=== PATIENT | female | born 1990 | race Caucasian/White ===

== ENCOUNTER 2022-12-05 08:57 | Outpatient (CLI) | payer BC, SELFPAY ==
[2022-12-05 11:15] LABS: Basophils Percent Auto 0.4 % (0.2-1.2); Eosinophils Absolute Auto 0.2 K/mm3 (0-0.3); Eosinophils Percent Auto 2.3 % (0-4.4); Hematocrit 40.2 % (37.0-47.0); Hemoglobin 13.8 g/dL (12.0-15.0); Immature Granulocyte Absolute 0.02 K/mm3 (0.00-0.031); Immature Granulocyte Percent A 0.2 % (0-0.5); Lymphocytes Absolute Auto 1.32 K/mm3 (0.9-3.2); Lymphocytes Percent Auto 14.7 % (18.3-44.2); Mean Corpuscular HGB Conc 34.3 g/dl (32-36); Mean Corpuscular Hemoglobin 30.1 pg (26-34); Mean Corpuscular Volume 87.6 fl (80-100); Mean Platelet Volume 10.2 fl (7.4-10.4); Monocytes Absolute Auto 0.6 K/mm3 (0.1-0.6); Monocytes Percent Auto 6.1 % (2.6-8.5); Neutrophils Absolute Auto 6.8 K/mm3 (1.3-6.7); Neutrophils Percent Auto 76.3 % (45.5-73.1); Platelet Count Result 260 k/mm3 (150-375); Red Blood Count 4.59 M/mm3 (4.2-5.4)
[2022-12-05 11:26] LABS: Glucose 1 Hour PP 50gm Dose 127 mg/dL
[2022-12-05 12:01] LABS: Hepatitis B Surface Antigen Negative (Negative); Rubella IgG Antibody 39.6 IU/ML
[2022-12-05 12:06] LABS: HIV 1/2 Ab P24 Ag Result Negative (Negative)
[2022-12-05 15:14] LABS: Rapid Plasma Reagin Non-Reactive (NonReactive)
[2022-12-11 15:30] LABS: CMV IgG Antibody >10.00 U/mL (<0.60)
[2022-12-16 10:15] LABS: SMA 2.0 RISK VARIANT NOT DETECTED
[2022-12-16 19:38] LABS: CF Result NEGATIVE (NEGATIVE)
[2022-12-20 14:40] LABS: SMA Results Received YES
== END 2022-12-05 08:58 | disposition home or self-care (01) ==
PROVIDERS: PCP Family Medicine Sports Medicine; Visit Provider Obstetrics & Gynecology
DX: N94.89 Other specified conditions associated with female genital organs and menstrual cycle (principal)
CPT/HCPCS: 36415; 81220; 81329; 82947; 84702; 85025; 86592; 86644; 86703; 86747; 86762; 86787; 86850; 86900; 86901; 87086; 87340; G0432

== ENCOUNTER 2023-03-17 14:01 | Observation (INO) | payer BC, SELFPAY ==
[2023-03-17 15:13] LABS: Appearance Urine Clear (Clear); Bilirubin Urine Negative (Negative); Blood Urine 3+ (Negative); Color Urine Yellow (Yellow); Glucose Urine UA Negative (Negative); Ketones Urine Negative (Negative); Leukocyte Esterase Ur Negative LEU/UL (Negative); Nitrate Urine Negative (Negative); Protein Urine Negative (Negative); Specific Grav Ur <= 1.005 (1.001-1.035); Urobilinogen Urine 0.2 mg/dL (<2.0)
[2023-03-17 15:31] LABS: Bacteria Urine None Seen /hpf; Need Manual Microscopic Reviewed; Non Pathogenic Casts 0-2; RBC Urine 21-50 /hpf (0-2); Squamous Epithelial Cell Urine None seen /hpf (Few); WBC Urine 0-5 /hpf
[2023-03-17 15:34] LABS: Add Urine Microscopic? YES
--- NOTE | 2023-03-18 15:18 | P.PNOB_ITS ---
OB - Triage/Final Diagnosis Visit Information Reason for evaluation: threatened labor Comments/Additional reasons for admission: I have assessed the risk for this patient, Cheyenne Solorzano, and determined that she would benefit from observation care. Evaluation Laboratory results: Laboratory Tests 03/17/23 14:34 Urine Color Yellow Urine Appearance Clear Urine pH 7.0 Ur Specific [place] <= 1.005 Urine Protein Negative Urine Glucose (UA) Negative Urine Ketones Negative Ur Blood (Man) 3+ H Urine Nitrate Negative Urine Bilirubin Negative Urine Urobilinogen 0.2 Add Ur Microanalysis Reviewed Leukocyte Esterase Rfl Negative Urine RBC 21-50 H Urine WBC 0-5 Ur Squamous Epith Cells None seen Urine Bacteria None seen Urine Casts 0-2
== END 2023-03-17 15:55 | disposition home or self-care (01) ==
PROVIDERS: Admitting Provider Obstetrics & Gynecology; PCP Family Medicine Sports Medicine; Visit Provider Obstetrics & Gynecology
DX: O47.02 False labor before 37 completed weeks of gestation, second trimester (principal); Z3A.25 25 weeks gestation of pregnancy
CPT/HCPCS: 81001; G0378; G0379

== ENCOUNTER 2023-04-04 09:03 | Outpatient (CLI) | payer BC, SELFPAY ==
[2023-04-04 10:39] LABS: Basophils Percent Auto 0.3 % (0.2-1.2); Eosinophils Absolute Auto 0.3 K/mm3 (0-0.3); Hemoglobin 11.4 g/dL (12.0-15.0); Immature Granulocyte Absolute 0.06 K/mm3 (0.00-0.031); Immature Granulocyte Percent A 0.5 % (0-0.5); Lymphocytes Absolute Auto 1.21 K/mm3 (0.9-3.2); Lymphocytes Percent Auto 11.1 % (18.3-44.2); Mean Corpuscular HGB Conc 34.5 g/dl (32-36); Mean Corpuscular Hemoglobin 30.2 pg (26-34); Mean Corpuscular Volume 87.3 fl (80-100); Mean Platelet Volume 9.9 fl (7.4-10.4); Monocytes Absolute Auto 0.6 K/mm3 (0.1-0.6); Monocytes Percent Auto 5.7 % (2.6-8.5); Neutrophils Absolute Auto 8.7 K/mm3 (1.3-6.7); Neutrophils Percent Auto 79.4 % (45.5-73.1); Platelet Count Result 219 k/mm3 (150-375); Red Blood Count 3.78 M/mm3 (4.2-5.4); Red Cell Distribution Width 13.8 % (11.5-14.5); White Blood Count 10.9 K/mm3 (4.5-10.0)
[2023-04-04 10:50] LABS: Glucose 1 Hour PP 50gm Dose 130 mg/dL
[2023-04-04 11:30] LABS: HIV 1/2 Ab P24 Ag Result Negative (Negative)
== END 2023-04-04 09:04 | disposition home or self-care (01) ==
LOC: ANHLAB 09:04
PROVIDERS: PCP Family Medicine Sports Medicine; Visit Provider Obstetrics & Gynecology
DX: Z34.90 Encounter for supervision of normal pregnancy, unspecified, unspecified trimester (principal); Z3A.00 Weeks of gestation of pregnancy not specified
CPT/HCPCS: 36415; 82947; 85025; 86703; G0432

== ENCOUNTER 2023-05-08 09:37 | Emergency (ER) | payer BC, SELFPAY ==
[2023-05-08] VITALS (11 sets, daily range): BP systolic 120–173; BP diastolic 75–96; PULSE 78–98; RESP 16–18; TEMP 36.4–36.6; O2SAT 98–100
--- NOTE | ~2023-05-08 | US_ITS ---
US renal BI 05/08/2023 13:01 Procedure: Realtime transabdominal ultrasound of the kidneys and bladder. Indication: Left flank pain. Hematuria. 32 weeks . Comparison: No prior studies for comparison. Findings: Renal echotexture is normal bilaterally without contour deforming mass or renal calculus. T he right kidney measures 13.5 cm and left kidney measures 5.2 cm. Left kidney is atrophic. Bladder wi thin normal limits. There is severe left hydronephrosis. There are possible left renal stones. Bladde r is unremarkable. Right ureteral jet is present. Left ureteral jet not visualized. Impression: 1: Severe left hydronephrosis with left renal atrophy. Possible left nephrolithiasis.. Reviewed, dictated and finalized at location L. [employer] Impression: 1: Severe left hydronephrosis with left renal atrophy. Possible left nephrolith iasis..
[2023-05-08 10:42] LABS: Appearance Urine Cloudy (Clear); Bacteria Urine None Seen /hpf; Bilirubin Urine Negative (Negative); Blood Urine 3+ (Negative); Color Urine Orange (Yellow); Glucose Urine UA Negative (Negative); Ketones Urine Negative (Negative); Leukocyte Esterase Ur 2+ LEU/UL (Negative); Need Manual Microscopic Reviewed; Nitrate Urine Negative (Negative); Protein Urine 2+ mg/dL (Negative); RBC Urine >100 /hpf (0-2); Specific Grav Ur 1.003 (1.001-1.035); Squamous Epithelial Cell Urine Occasional /hpf (Few); Urobilinogen Urine 0.2 mg/dL (<2.0); WBC Clumps Urine Present /HPF; pH Urine 6.5 (5.0-9.0)
[2023-05-08 10:45] LABS: Add Urine Microscopic? YES
[2023-05-08 10:54] LABS: Basophils Percent Auto 0.3 % (0.2-1.2); Eosinophils Absolute Auto 0.1 K/mm3 (0-0.3); Eosinophils Percent Auto 0.9 % (0-4.4); Hematocrit 33.6 % (37.0-47.0); Hemoglobin 11.7 g/dL (12.0-15.0); Immature Granulocyte Absolute 0.04 K/mm3 (0.00-0.031); Immature Granulocyte Percent A 0.4 % (0-0.5); Lymphocytes Absolute Auto 0.96 K/mm3 (0.9-3.2); Lymphocytes Percent Auto 9.7 % (18.3-44.2); Mean Corpuscular HGB Conc 34.8 g/dl (32-36); Mean Corpuscular Hemoglobin 29.9 pg (26-34); Mean Corpuscular Volume 85.9 fl (80-100); Mean Platelet Volume 9.9 fl (7.4-10.4); Monocytes Absolute Auto 1.2 K/mm3 (0.1-0.6); Monocytes Percent Auto 11.9 % (2.6-8.5); Neutrophils Absolute Auto 7.6 K/mm3 (1.3-6.7); Neutrophils Percent Auto 76.8 % (45.5-73.1); Platelet Count Result 190 k/mm3 (150-375); Red Blood Count 3.91 M/mm3 (4.2-5.4); Red Cell Distribution Width 14.2 % (11.5-14.5); White Blood Count 9.9 K/mm3 (4.5-10.0)
[2023-05-08 11:06] LABS: Alanine Aminotransferase 19 U/L (6-35); Albumin Level 3.6 g/dL (3.5-5.1); Alkaline Phosphatase 94 U/L (38-126); Anion Gap 9 mmol/L (8-16); Aspartate Amino Transferase 27 U/L (14-36); Bilirubin,Total 0.6 mg/dL (0.2-1.3); Blood Urea Nitrogen 4 mg/dL (7-17); Calcium 9.2 mg/dL (8.4-10.2); Carbon Dioxide 21 mmol/L (22-30); Chloride 105 mmol/L (98-107); Estimated CRCL calculation 117 ml/min; Estimated Glomerular Filt Rate > 60; Glucose 79 mg/dL (65-110); Potassium 3.1 mmol/L (3.4-5.0); Sodium 135 mmol/L (137-145)
--- NOTE | 2023-05-08 11:45 | PC.NURSE ---
RN to bedside in ED to obtain NST on a 32 wk pt with lower back pain.
[2023-05-08] MEDS: SODIUM CHLORIDE 0.9% IV 1,000 ML 999 ML IV CONT (12:16)
--- NOTE | 2023-05-08 12:16 | ED.BACK ---
HPI - Back Pain/Injury General Chief Complaint: Back Pain/Injury Stated Complaint: COVID+ LOWER BACK PAIN 32 WEEKS PREG Time Seen by Provider: 05/08/23 12:05 Source: patient Mode of arrival: ambulatory Limitations: no limitations History of Present Illness HPI Narrative: This is a 33 year old female, 32 weeks , that presents to the ER for left low back pain. Ongoing since yesterday. Reports 2 days ago she started to have sinus pain and congestion. She was seen at her doctor's office and diagnosed with COVID. Last night she started to note left sided flank pain and hematuria. She has had intermittent hematuria since her second trimester and was recently placed on prophylactic Macrobid. Reports vomiting and dysuria. Denies fevers. Related Data Home Medications Medication Instructions Recorded Confirmed vitamins-iron fumarate 65 1 tablet PO DAILY 11/26/22 04/08/23 mg iron-folic acid 1 mg tablet aspirin 81 mg tablet,delayed 81 mg PO DAILY 01/21/23 04/08/23 release (Adult Low Dose Aspirin) ondansetron HCl 4 mg tablet 4 mg PO Q8H 01/21/23 04/08/23 ferrous sulfate 325 mg (65 mg 325 mg PO DAILY 04/08/23 04/08/23 iron) tablet Allergies Allergy/AdvReac Type Severity Reaction Status Date / Time amoxicillin Allergy Intermediate Rash Verified 04/21/23 16:43 Review of Systems Review of Systems: CONSTITUTIONAL: Denies fever ENT: Reports rhinorrhea, congestion, sore throat RESPIRATORY: Denies cough or dyspnea. GASTROINTESTINAL: Reports nausea and vomiting. Denies abdominal pain GENITOURINARY: Reports dysuria and hematuria. All systems reviewed & are unremarkable except as noted in HPI and below PMFSH Surgical History Surgical History H/O sinus surgery 1996 Family History Family History Father Hypertension Grandparent Cerebrovascular accident maternal grandfather Other Cerebrovascular accident maternal aunt Social History Social History Smoking status: Never smoker Alcohol intake: never Substance use: never Substance use type: does not use Lack of Transportation: No Lack of Food: Never True Current Housing: I Have Housing Concerned About Future Housing: No Difficulty Paying Gas/Electric Bills: No Difficulty Paying for Meds: No Currently Unemployed: No Education: Bachelor's Degree Difficulty w/ Childcare or Family Care: No Living arrangements: other Additional living arrangements comments: spouse 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 HEAD: Normocephalic, atraumatic. EYES: EOMI. CHEST: Clear to auscultation. No respiratory distress. No wheezes rales or rhonchi HEART: Regular rate and rhythm. No murmur heard. Normal peripheral pulses. ABDOMEN: Gravid, nontender, nondistended, normal active bowel sounds. No CVA tenderness EXTREMITIES: Normal range of motion. No edema. SKIN: Warm, dry, no rash. NEURO: No focal deficits. Alert and oriented x3. PSYCH: Normal mood and affect Course Course Emergency Course: Patient updated on workup and agrees with plan of care Consultations Consultation #1: Spoke with Dr. Haas about patient and workup. He will come down to the ER to see the patient Date: 05/08/23 Consultation #2: Spoke with Dr. Pineda about patient and workup. Patient is stable for discharge home on antibiotics. Does not recommend any further monitoring Date: 05/08/23 Vital Signs Vital signs: Vital Signs Temperature 97.6 F 05/08/23 09:39 Pulse Rate 96 05/08/23 09:39 Respiratory Rate 18 05/08/23 09:
[2023-05-08] MEDS: POTASSIUM CHLORIDE 20 MEQ ER TABLET 40 MEQ PO (12:20)
[2023-05-08 12:28] LABS: Magnesium 1.8 mg/dL (1.6-2.3)
--- NOTE | 2023-05-08 12:40 | PC.NURSE ---
Provider Alia Salinas on the phone with OB provider updating on this pt. PA discussing NST with provider and aware of uterine irritability. pt remain in ED at this time.
[2023-05-08] MEDS: ACETAMINOPHEN 500 MG TABLET 1000 MG PO (12:59)
[2023-05-08] MEDS: ONDANSETRON INJ 4 MG/2 ML VIAL IV PUSH (12:59)
[2023-05-08] MEDS: LACTATED RINGERS 1,000 ML 999 ML IV CONT (12:59)
[2023-05-08 13:44] LABS: Lactic Acid Reflex 1.5 mmol/L (0.7-2.0)
--- NOTE | 2023-05-08 14:39 | WPDURCON ---
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 We favor outpatient treatment for her current infection followed by suppressive antibiotics (he has already been prescribed nitrofurantoin 100 mg daily). If left flank pain becomes intractable or she develops febrile urinary tract infections we may need to place ureteral stent but I will try and avoid that until after she has delivered. Following delivery we will obtain a CT urogram and proceed accordingly. Urology Consult Note HPI Date Seen: 05/08/23 Primary Care Provider: Jann MonacoMD Consult Narrative Narrative: Cheyenne Solorzano is a 33 year old female at 35 weeks gestation with her 1st . She has no prior significant known urological history per presents to the emergency department with recurrent left flank pain and urinary tract infection. she denies fever chills or gross hematuria. These infections have become a bit problematic in the last phases of and she has recently been started on suppressive nitrofurantoin 100 mg daily. Renal ultrasonography in the ER today reveals marked left hydronephrosis with left renal atrophy. This suggest a longstanding ureteral obstruction. The left ureter cannot be visualized. Patient has no known congenital upper urinary tract anomalies but denies ever having had upper tract imaging in the past. She did not have a history of infections as a young girl. Review of Systems Cardiovascular: Cardiovascular: Denies chest pain, Denies lightheadedness, Denies palpitations and Denies dyspnea Respiratory: Respiratory: Denies dyspnea Gastrointestinal: Gastrointestinal: Denies diarrhea, Denies nausea and Denies vomiting Genitourinary: Genitourinary: Denies hematuria and Denies dysuria Endocrine: Endocrine: Denies palpitations [facility] Surgical History Surgical History H/O sinus surgery 1996 Family History Family History Father Hypertension Grandparent Cerebrovascular accident maternal grandfather Other Cerebrovascular accident maternal aunt Social History Social History Smoking status: Never smoker Alcohol intake: never Substance use: never Substance use type: does not use Lack of Transportation: No Lack of Food: Never True Current Housing: I Have Housing Concerned About Future Housing: No Difficulty Paying Gas/Electric Bills: No Difficulty Paying for Meds: No Currently Unemployed: No Education: Bachelor's Degree Difficulty w/ Childcare or Family Care: No Living arrangements: other Additional living arrangements comments: spouse 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/Education: 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 Gender identity (if verbalized by the patient): Female Sexual Orientation (if Verbalized by the Patient): Straight or Heterosexual Meds Home Medications and Allergies Home Medications Medication Instructions Recorded Confirmed Type vitamins-iron fumarate 65 1 tablet PO DAILY 11/26/22 04/08/23 History mg iron-folic acid 1 mg tablet aspirin 81 mg tablet,delayed 81 mg PO DAILY 01/21/23 04/08/23 History release (Adult Low Dose Aspirin) ondansetron HCl 4 mg tablet 4 mg PO Q8H 01/21/23 04/08/23 History ferrous sulfate 325 mg (65 mg 325 mg PO DAILY 04/08/23 04/08/23 History iron) tablet nitrofurantoin macrocrystal 100 mg 100 mg PO DAILY #30 caps 04/08/23 04/08/23 Rx capsule (Macrodantin)
== END 2023-05-08 15:16 | disposition home or self-care (01) ==
PROVIDERS: Emergency Medicine; Emergency Provider Physician Assistant; PCP Family Medicine Sports Medicine
DX: O26.893 Other specified pregnancy related conditions, third trimester (principal); U07.1 COVID-19; O23.03 Infections of kidney in pregnancy, third trimester; E87.6 Hypokalemia; Z3A.32 32 weeks gestation of pregnancy
CPT/HCPCS: 36415; 76775; 80053; 81001; 83605; 83735; 85025; 87086; 96361; 96365; 96375; 99284; A9270; J0696; J2405; J7030; J7120

== ENCOUNTER 2023-05-19 16:46 | Outpatient (CLI) | payer BC, SELFPAY ==
[2023-05-19 17:13] LABS: Hematocrit 34.4 % (37.0-47.0); Hemoglobin 11.5 g/dL (12.0-15.0); Mean Corpuscular HGB Conc 33.4 g/dl (32-36); Mean Corpuscular Hemoglobin 29.3 pg (26-34); Mean Corpuscular Volume 87.5 fl (80-100); Mean Platelet Volume 10.3 fl (7.4-10.4); Platelet Count Result 256 k/mm3 (150-375); Red Blood Count 3.93 M/mm3 (4.2-5.4); Red Cell Distribution Width 13.8 % (11.5-14.5); White Blood Count 11.8 K/mm3 (4.5-10.0)
[2023-05-19 17:28] LABS: Creatinine Urine 15.3 mg/dL; Total Protein Urine Random 16 mg/dL
[2023-05-19 17:32] LABS: Alanine Aminotransferase 18 U/L (6-35); Albumin Level 3.7 g/dL (3.5-5.1); Alkaline Phosphatase 88 U/L (38-126); Anion Gap 4 mmol/L (8-16); Aspartate Amino Transferase 23 U/L (14-36); Bilirubin,Total 0.7 mg/dL (0.2-1.3); Blood Urea Nitrogen 5 mg/dL (7-17); Calcium 8.9 mg/dL (8.4-10.2); Carbon Dioxide 25 mmol/L (22-30); Chloride 107 mmol/L (98-107); Estimated Glomerular Filt Rate > 60; Glucose 84 mg/dL (65-110); Potassium 3.3 mmol/L (3.4-5.0); Sodium 136 mmol/L (137-145); Uric Acid 2.5 mg/dL (2.5-7.5)
== END 2023-05-19 16:47 | disposition home or self-care (01) ==
PROVIDERS: PCP Family Medicine Sports Medicine; Visit Provider Student in an Organized Health Care Education/Training Program
DX: O13.9 Gestational [pregnancy-induced] hypertension without significant proteinuria, unspecified trimester (principal); Z3A.00 Weeks of gestation of pregnancy not specified
CPT/HCPCS: 36415; 80053; 81050; 82570; 84156; 84550; 85027

== ENCOUNTER 2023-06-10 17:30 | Outpatient (CLI) | payer BC, SELFPAY ==
[2023-06-10 17:58] VITALS: BP 149/98; PULSE 71
[2023-06-10 18:00] VITALS: BP 148/91; PULSE 71
[2023-06-10 18:14] LABS: Basophils Percent Auto 0.3 % (0.2-1.2); Eosinophils Absolute Auto 0.2 K/mm3 (0-0.3); Eosinophils Percent Auto 1.9 % (0-4.4); Hematocrit 35.3 % (37.0-47.0); Immature Granulocyte Absolute 0.06 K/mm3 (0.00-0.031); Immature Granulocyte Percent A 0.6 % (0-0.5); Lymphocytes Absolute Auto 1.59 K/mm3 (0.9-3.2); Lymphocytes Percent Auto 14.6 % (18.3-44.2); Mean Corpuscular Hemoglobin 29.9 pg (26-34); Mean Platelet Volume 10.8 fl (7.4-10.4); Monocytes Absolute Auto 0.9 K/mm3 (0.1-0.6); Monocytes Percent Auto 8.1 % (2.6-8.5); Neutrophils Absolute Auto 8.1 K/mm3 (1.3-6.7); Neutrophils Percent Auto 74.5 % (45.5-73.1); Platelet Count Result 207 k/mm3 (150-375); Red Blood Count 4.01 M/mm3 (4.2-5.4); Red Cell Distribution Width 14.8 % (11.5-14.5); White Blood Count 10.9 K/mm3 (4.5-10.0)
[2023-06-10 18:15] VITALS: BP 140/87; PULSE 68
[2023-06-10 18:24] LABS: Creatinine Urine 15.2 mg/dL; Total Protein Urine Random 33 mg/dL; Ur Ttl Prot Creatinine Ratio 2.17 mg/mg (0-0.20)
[2023-06-10 18:25] LABS: Alanine Aminotransferase 12 U/L (6-35); Albumin Level 3.5 g/dL (3.5-5.1); Alkaline Phosphatase 116 U/L (38-126); Anion Gap 7 mmol/L (8-16); Appearance Urine Clear (Clear); Aspartate Amino Transferase 20 U/L (14-36); Bacteria Urine None Seen /hpf; Bilirubin Urine Negative (Negative); Bilirubin,Total 0.8 mg/dL (0.2-1.3); Blood Urea Nitrogen 3 mg/dL (7-17); Blood Urine 3+ (Negative); Calcium 8.3 mg/dL (8.4-10.2); Carbon Dioxide 21 mmol/L (22-30); Chloride 108 mmol/L (98-107); Color Urine Yellow (Yellow); Estimated Glomerular Filt Rate > 60; Glucose 73 mg/dL (65-110); Glucose Urine UA Negative (Negative); Ketones Urine Negative (Negative); Leukocyte Esterase Ur 1+ LEU/UL (NEGATIVE); Need Manual Microscopic Reviewed; Nitrate Urine Negative (Negative); Non Pathogenic Casts 0-2; Protein Urine Negative (Negative); RBC Urine 0-2 /hpf (0-2); Sodium 136 mmol/L (137-145); Specific Grav Ur 1.002 (1.001-1.035); Squamous Epithelial Cell Urine None seen /hpf (Few); Uric Acid 2.8 mg/dL (2.5-7.5); Urobilinogen Urine 0.2 mg/dL (<2.0); WBC Urine 0-5 /hpf (0-3); pH Urine 7.5 (5.0-9.0)
[2023-06-10 18:28] LABS: Add Urine Microscopic? YES
[2023-06-10 18:30] VITALS: BP 148/83; PULSE 64
[2023-06-10 18:45] VITALS: BP 139/86; PULSE 74
== END 2023-06-10 19:05 | disposition home or self-care (01) ==
LOC: ANHOBOP 17:34 → ANHOBPP 17:39
PROVIDERS: PCP Family Medicine Sports Medicine; Visit Provider Obstetrics & Gynecology
DX: O13.9 Gestational [pregnancy-induced] hypertension without significant proteinuria, unspecified trimester (principal); Z3A.00 Weeks of gestation of pregnancy not specified
CPT/HCPCS: 36415; 80053; 81001; 82570; 84156; 84550; 85025; 87086; 87088; 99199

== ENCOUNTER 2023-06-17 07:22 | Outpatient (RCR) | payer BC, SELFPAY ==
[2023-06-13 08:43] LABS: Basophils Percent Auto 0.4 % (0.2-1.2); Eosinophils Absolute Auto 0.3 K/mm3 (0-0.3); Eosinophils Percent Auto 2.7 % (0-4.4); Hematocrit 37.2 % (37.0-47.0); Hemoglobin 12.6 g/dL (12.0-15.0); Immature Granulocyte Absolute 0.08 K/mm3 (0.00-0.031); Immature Granulocyte Percent A 0.8 % (0-0.5); Lymphocytes Absolute Auto 1.65 K/mm3 (0.9-3.2); Lymphocytes Percent Auto 15.6 % (18.3-44.2); Mean Corpuscular HGB Conc 33.9 g/dl (32-36); Mean Corpuscular Hemoglobin 30.1 pg (26-34); Mean Corpuscular Volume 88.8 fl (80-100); Mean Platelet Volume 10.7 fl (7.4-10.4); Monocytes Absolute Auto 0.9 K/mm3 (0.1-0.6); Monocytes Percent Auto 8.4 % (2.6-8.5); Neutrophils Absolute Auto 7.6 K/mm3 (1.3-6.7); Neutrophils Percent Auto 72.1 % (45.5-73.1); Platelet Count Result 214 k/mm3 (150-375); Red Blood Count 4.19 M/mm3 (4.2-5.4); Red Cell Distribution Width 14.9 % (11.5-14.5); White Blood Count 10.6 K/mm3 (4.5-10.0)
[2023-06-13 08:50] LABS: Creatinine Urine 96.3 mg/dL; Total Protein Urine Random 20 mg/dL; Ur Ttl Prot Creatinine Ratio 0.21 mg/mg (0-0.20)
[2023-06-13 08:54] LABS: Alanine Aminotransferase 14 U/L (6-35); Albumin Level 3.5 g/dL (3.5-5.1); Alkaline Phosphatase 113 U/L (38-126); Anion Gap 9 mmol/L (8-16); Aspartate Amino Transferase 20 U/L (14-36); Bilirubin,Total 0.9 mg/dL (0.2-1.3); Blood Urea Nitrogen 5 mg/dL (7-17); Calcium 8.9 mg/dL (8.4-10.2); Carbon Dioxide 21 mmol/L (22-30); Chloride 106 mmol/L (98-107); Estimated Glomerular Filt Rate > 60; Glucose 101 mg/dL (65-110); Sodium 136 mmol/L (137-145)
[2023-06-13 09:11] VITALS: BP 142/94; PULSE 79
--- NOTE | 2023-06-13 09:13 | PC.NURSE ---
Patient came in for a scheduled NST with [facility] labs. Called MD with lab results and notified of reactive NST. Verbal orders received to discharge patient today with continued limited activity. Patient to change her scheduled OB appointment to Friday morning (06/16/23) and come back to OB unit Friday06/17/23 for a followup NST. Patient agrees with plan of care and has no questions at this time.
[2023-06-17 08:12] VITALS: BP 141/91; PULSE 70
[2023-06-17 08:27] LABS: Creatinine Urine 73.6 mg/dL; Total Protein Urine Random 16 mg/dL; Ur Ttl Prot Creatinine Ratio 0.22 mg/mg (0-0.20)
== END 2023-09-11 23:59 | disposition home or self-care (01) ==
LOC: ANHOBOP 07:22
PROVIDERS: PCP Family Medicine Sports Medicine; Visit Provider Obstetrics & Gynecology
DX: O16.3 Unspecified maternal hypertension, third trimester (principal); Z3A.37 37 weeks gestation of pregnancy; Z3A.38 38 weeks gestation of pregnancy
CPT/HCPCS: 36415; 59025; 80053; 82570; 84156; 85025

== ENCOUNTER 2023-06-18 17:04 | Inpatient (IN) | payer BC, SELFPAY ==
[2023-06-18] VITALS (34 sets, daily range): BP systolic 112–163; BP diastolic 62–101; PULSE 57–87; RESP 16; TEMP 36.1–36.7; O2SAT 92–97; BMI 32.5
[2023-06-18 17:36] LABS: Basophils Percent Auto 0.2 % (0.2-1.2); Eosinophils Absolute Auto 0.2 K/mm3 (0-0.3); Eosinophils Percent Auto 1.9 % (0-4.4); Hematocrit 40.2 % (37.0-47.0); Hemoglobin 13.3 g/dL (12.0-15.0); Immature Granulocyte Absolute 0.05 K/mm3 (0.00-0.031); Immature Granulocyte Percent A 0.5 % (0-0.5); Lymphocytes Absolute Auto 1.55 K/mm3 (0.9-3.2); Lymphocytes Percent Auto 14.6 % (18.3-44.2); Mean Corpuscular HGB Conc 33.1 g/dl (32-36); Mean Corpuscular Hemoglobin 29.5 pg (26-34); Mean Corpuscular Volume 89.1 fl (80-100); Monocytes Absolute Auto 0.7 K/mm3 (0.1-0.6); Neutrophils Percent Auto 75.8 % (45.5-73.1); Platelet Count Result 222 k/mm3 (150-375); Red Blood Count 4.51 M/mm3 (4.2-5.4); Red Cell Distribution Width 14.9 % (11.5-14.5); White Blood Count 10.6 K/mm3 (4.5-10.0)
--- NOTE | 2023-06-18 17:36 | LDADM ---
This patient, Cheyenne Solorzano, was admitted to Labor/Delivery/Recovery 105 on 06/18/23 at 17:04. Plans for labor, pain management and were discussed with patient. Patient/family oriented to hospital policies and general routines including ID bracelet, bed and alarms, visiting hours, pain management, procedures, bathroom and other care routines, personal items, smoking policy, room service/diet and guest tray routines, security routines, and visiting hours. Patient/Family are encouraged to report perceived risks to care and to ask questions if they do not understand what they are told or what they should do. See OBIX for further documentation.
[2023-06-18] MEDS: DINOPROSTONE 10 MG VAG INSERT VAGINAL (17:57)
[2023-06-18 18:43] LABS: Alanine Aminotransferase 13 U/L (6-35); Albumin Level 3.3 g/dL (3.5-5.1); Alkaline Phosphatase 109 U/L (38-126); Anion Gap 9 mmol/L (8-16); Aspartate Amino Transferase 19 U/L (14-36); Bilirubin,Total 0.8 mg/dL (0.2-1.3); Blood Urea Nitrogen 5 mg/dL (7-17); Calcium 8.9 mg/dL (8.4-10.2); Carbon Dioxide 22 mmol/L (22-30); Chloride 106 mmol/L (98-107); Estimated CRCL calculation 136 ml/min; Estimated Glomerular Filt Rate > 60; Glucose 92 mg/dL (65-110); Sodium 137 mmol/L (137-145); Uric Acid 3.2 mg/dL (2.5-7.5)
--- NOTE | 2023-06-18 19:00 | WPDANESEPP ---
Anes - Eval Pre Procedure Procedure: labor epidural Date/Time: 06/18/23 19:00 Pre Op Diagnosis: iol Patient Data Age: 33 Gender: F Height: 1.73 m Weight: 97.3 kg Last Vital Signs Temp 36.7 C 06/18/23 17:30 Pulse 63 06/18/23 18:31 Resp 16 06/18/23 17:30 BP 125/64 06/18/23 18:31 O2 Del Method Room Air 06/18/23 17:33 Allergies Allergy/AdvReac Type Severity Reaction Status Date / Time amoxicillin Allergy Intermediate Rash Verified 06/16/23 09:21 Home Medications Medication Instructions Recorded Confirmed Type vitamins-iron fumarate 65 1 tablet PO DAILY 11/26/22 06/18/23 History mg iron-folic acid 1 mg tablet aspirin 81 mg tablet,delayed 81 mg PO DAILY 01/21/23 06/18/23 History release (Adult Low Dose Aspirin) ondansetron HCl 4 mg tablet 4 mg PO Q8H PRN Nausea 01/21/23 06/18/23 History ferrous sulfate 325 mg (65 mg 325 mg PO DAILY 04/08/23 06/18/23 History iron) tablet nitrofurantoin 100 mg PO DAILY 06/04/23 06/18/23 History monohydrate/macrocrystals 100 mg capsule (Macrobid) Laboratory Tests 06/18/23 06/18/23 17:28 18:18 WBC 10.6 H K/mm3 (4.5-10.0) RBC 4.51 M/mm3 (4.2-5.4) Hgb 13.3 g/dL (12.0-15.0) Hct 40.2 % (37.0-47.0) MCV 89.1 fl (80-100) MCH 29.5 pg (26-34) MCHC 33.1 g/dl (32-36) RDW 14.9 H % (11.5-14.5) Plt Count 222 k/mm3 (150-375) MPV 11.0 H fl (7.4-10.4) Immature Gran % (Auto) 0.5 % (0-0.5) Neut % (Auto) 75.8 H % (45.5-73.1) Lymph % (Auto) 14.6 L % (18.3-44.2) [place] % (Auto) 7.0 % (2.6-8.5) Eos % (Auto) 1.9 % (0-4.4) Baso % (Auto) 0.2 % (0.2-1.2) Lymph # (Auto) 1.55 K/mm3 (0.9-3.2) [place] # (Auto) 0.7 H K/mm3 (0.1-0.6) Eos # (Auto) 0.2 K/mm3 (0-0.3) Baso # (Auto) 0.0 K/mm3 (0.0-0.1) Abs Immat Gran (auto) 0.05 H K/mm3 (0.00-0.031) Absolute Neuts (auto) 8.0 H K/mm3 (1.3-6.7) Absolute Nucleated RBC 0.0 K/mm3 (0.0-0.012) Nucleated RBC % 0.0 % (0.0-0.2) Sodium 137 mmol/L (137-145) Potassium 3.0 L mmol/L (3.4-5.0) Chloride 106 mmol/L (98-107) Carbon Dioxide 22 mmol/L (22-30) Anion Gap 9 mmol/L (8-16) BUN 5 L mg/dL (7-17) Creatinine 0.60 L mg/dL (0.7-1.0) Estim Creat Clear Calc 136 ml/min Estimated GFR > 60 (59 - ) Glucose 92 mg/dL (65-110) Uric Acid 3.2 mg/dL (2.5-7.5) Calcium 8.9 mg/dL (8.4-10.2) Total Bilirubin 0.8 mg/dL (0.2-1.3) AST 19 U/L (14-36) ALT 13 U/L (6-35) Alkaline Phosphatase 109 U/L (38-126) Total Protein 6.0 L g/dL (6.3-8.2) Albumin 3.3 L g/dL (3.5-5.1) RPR Pending Blood Type A Positive Antibody Screen Negative Patient hx anesthesia problems: none Family hx anesthesia problems: none Results Review: All pre-operative results and documents have been reviewed as part of the pre-operative evaluation. [facility] Surgical History Surgical History H/O sinus surgery 1996 Family History Family History Father Hypertension Grandparent Cerebrovascular accident maternal grandfather Other Cerebrovascular accident maternal aunt Social History Social History Smoking status: Never smoker Second hand tobacco smoke exposure: No Alcohol intake: never Substance use: never Substance use type: does not use Do You Feel Safe in your Home?: Yes Lack of Transportation: No Lack of Food: Never True Current Housing: I Have Housing Concerned About Future Housing: No Difficulty Paying Gas/Electric Bills: No Difficulty Paying for Meds: No Currently
[2023-06-18] MEDS: LACTATED RINGERS 1,000 ML 999 ML IV CONT (19:55)
[2023-06-18] MEDS: ACETAMINOPHEN 325 MG TABLET 650 MG PO (21:13)
[2023-06-19] VITALS (237 sets, daily range): BP systolic 90–180; BP diastolic 50–114; PULSE 39–235; RESP 18–20; TEMP 36.2–37.1; O2SAT 79–100
[2023-06-19] MEDS: LACTATED RINGERS 1,000 ML 125 ML IV CONT ×3 (02:08→08:13)
[2023-06-19] MEDS: OXYTOCIN 30 UNITS/NS 500 ML 30 UNITS/500 ML BAG IV CONT (02:08)
[2023-06-19] MEDS: fentaNYL CITRATE INJ (*CRX) 100 MCG/2 ML VIAL 50 MCG IV PUSH (04:13)
--- NOTE | 2023-06-19 10:52 | WPDHPUPDATE1 ---
History and Physical Update Update Date/Time: 06/19/23 10:52 33 y/o primigravid patient presents at 38 weeks for induction of labor due to gestational hypertension. Blood pressures of been in the 140-150 over 90s range for 2 weeks, limited activity and testing along with serial lab studies have not shown any worsening. Presents for Cervidil induction, planned vaginal delivery. Will treat hypertension as needed. History and Physical has been reviewed, including an updated exam of the patient. There are NO changes in the patient's condition. Risks, benefits, and alternatives have been discussed and questions answered. Patient agrees to proceed with procedure.
--- NOTE | 2023-06-19 10:53 | WPDOBADMIT ---
Obstetrics - Admit Note Admission Note: record reviewed. No pertinent additions to the history and/or any subsequent changes in the physical findings that are not consistent with the expected course of the were found. Additions to the history and/or subsequent changes in the physical findings follow. None.
--- NOTE | 2023-06-19 13:47 | PM.OBPRVD ---
OB - Vaginal Delivery Note Procedure Delivery date: 06/19/23 Events: Gestational Hypertension Induction method: Per Cervidil Protocol Delivery augmentation: Rupture of Membranes and Pitocin Delivery monitor: External FHT and External Uterine Route of delivery: Episiotomy description: None Laceration Description: Vaginal Delivery repair: chromic Specimen: Yes Quantitative Blood Loss (ml): 300 Anesthesia type: Epidural Disposition: Floor Complications: No immediate complications Narrative: Patient prepped draped usual manner for this procedure. Maternal expulsive efforts readily delivered vertex over intact perineum, nuchal cord was noted and reduced. Rest of baby was delivered without difficulty cord clamped cut and placenta delivered spontaneously. Cervix vagina vulva were inspected with no significant lacerations or tears though there was a vaginal laceration which was readily closed using 2-0 chromic in a running interlocking manner with good approximation noted. Vaginal laceration was hemostatic, uterus well contracted, no significant bleeding and immediate postoperative condition of mother and baby were both excellent. [place] Baby Weeks of gestation at delivery: 38 gender: Female presentation: vertex position: Right Occiput Anterior Placenta delivery description: Spontaneous Cord Vessel Description: 3 Vessels, Nuchal Cord and Reduced [facility] Delivery Billing Delivery Delivery: Delivery Charge
[2023-06-19] MEDS: OXYTOCIN 30 UNITS/NS 500 ML 30 UNITS/500 ML BAG 125 UNITS IV CONT (14:03)
[2023-06-19] MEDS: ACETAMINOPHEN 325 MG TABLET 650 MG PO (14:53)
[2023-06-19] MEDS: WITCH HAZEL 40 PADS 1 PAD TOPICAL (15:49)
[2023-06-19] MEDS: BENZOCAINE 20% AER SPR (*SP) 56 GM CAN 1 SPRAY TOPICAL (15:49)
[2023-06-19 16:56] LABS: Rapid Plasma Reagin Non-Reactive (NonReactive)
--- NOTE | 2023-06-19 17:16 | OBPPTRN ---
Patient transferred to post room #283 via wheelchair, baby Cindy in crib by moms side, and dad Dave present. Oriented to unit, room, information board, rooming in, admission packet and security measures. Patient verbalizes understanding.
[2023-06-19] MEDS: DOCUSATE SODIUM 100 MG CAPSULE PO (17:50)
[2023-06-19] MEDS: IBUPROFEN 600 MG TABLET PO (23:50)
[2023-06-20 04:44] VITALS: BP 124/78; PULSE 67; RESP 18; TEMP 36.9; O2SAT 96
[2023-06-20] MEDS: IBUPROFEN 600 MG TABLET PO (05:18)
[2023-06-20 05:54] LABS: Hemoglobin 10.5 g/dL (12.0-15.0)
--- NOTE | 2023-06-20 07:59 | PM.OBDSVD ---
DS: Admitting Diagnosis Discharge Date 06/21/2023 Admitting Diagnosis DS: Discharge Diagnosis Discharge Diagnosis (1) , delivered: Code(s): O80 - Encounter for full-term uncomplicated delivery Status: Acute OB - DS: Summary OB Procedures : None OB Procedures Intrapartum: Spontaneous Vag Delivery OB Procedures: : None Peripartum Data Laceration Description: Vaginal Episiotomy description: None Time Spent with Patient Time attestation: Total time spent providing and/or coordinating discharge services: DS: Data Data Completed and Pending Pending studies at discharge: Pending at discharge 06/19/23 14:29 Surgical [PTH] Routine Labs on day of discharge: Labs from last 24 hours 06/20/23 06/18/23 04:58 17:28 Hgb 10.5 L Hct 32.0 L RPR Non-reactive Discharge Plan Discharge Discharging Clinician: Kory Pineda Patient Disposition: Home, Self-Care Activity: as tolerated Diet: as tolerated Patient Instructions: Antibiotic Form Stand Alone Forms: General Discharge Information Follow-up/Referrals: Kory Pineda MD [Physician] - 3 Weeks Discharge Medications: New ibuprofen 600 mg Tablet 600 mg PO Q6H PRN (Reason: Cramping) Qty: 30 0RF Continued ondansetron HCl 4 mg tablet 4 mg PO Q8H PRN (Reason: Nausea) ferrous sulfate 325 mg (65 mg iron) tablet 325 mg PO DAILY vit-iron fum-folic ac 65 mg iron- 1 mg tablet 1 tablet PO DAILY nitrofurantoin monohyd/m-cryst [Macrobid] 100 mg Capsule 100 mg PO DAILY Patient Comments: Pt unsure of mg Takes as a profolactive Rx Instructions: must administer with a meal/food Discontinued aspirin [Adult Low Dose Aspirin] 81 mg tablet,delayed release (DR/EC) 81 mg PO DAILY Date of admission: 06/18/23 17:04 Primary Care Provider: Jacinda,Jann Wolfe Admitting Provider: Kory Pineda Attending physician on admission: Kory Pineda Condition: Stable
[2023-06-20 08:35] VITALS: BP 119/81; PULSE 78; RESP 18; TEMP 36.5; O2SAT 97
[2023-06-20] MEDS: FERROUS SULFATE 325 MG TABLET DR BY MOUTH (08:55)
[2023-06-20] MEDS: DOCUSATE SODIUM 100 MG CAPSULE PO (08:55)
[2023-06-20] MEDS: MULTIVIT/MIN/PREN/FOL AC/IRON TABLET 1 TAB PO (08:55)
[2023-06-20] MEDS: LANOLIN (LANSINOH) 7.5 GM CREAM 1 APPLIC TOPICAL (08:55)
--- NOTE | 2023-06-20 09:22 | WPDANLDPN2 ---
Anes-Prog Note L&D Date/Time: 06/20/23 09:22 Comfortable throughout: labor and delivery Neuraxial method: epidural Epidural/Spinal procedure site: clean & non-tender Neuro status: Neuro function grossly intact. Cardiovascular status: normal Respiratory status: normal Airway patency: baseline Mental status: baseline Post-Op hydration status: normal Vital Signs: Last Vital Signs Temp 97.7 F 06/20/23 08:35 Pulse 78 06/20/23 08:35 Resp 18 06/20/23 08:35 BP 119/81 06/20/23 08:35 Pulse Ox 97 06/20/23 08:35 O2 Del Method Room Air 06/19/23 20:32 Pain score (VAS): 0 I/O: Intake & Output 06/19/23 06/20/23 06/20/23 23:59 07:59 15:59 Intake Total 1650 Output Total 1080 Balance 570 Post-procedural complaints: none Patient feedback: Patient satisfied with anesthetic care.
[2023-06-20] MEDS: NITROFURANTOIN MONOHYD MACROCR 100 MG CAP PO (10:52)
[2023-06-20 13:30] VITALS: BP 129/87; PULSE 87; RESP 18; TEMP 36.7; O2SAT 96
[2023-06-20] MEDS: ACETAMINOPHEN 325 MG TABLET 650 MG PO ×2 (15:02→23:24)
--- NOTE | 2023-06-20 17:04 | PC.NURSE ---
[id number] Introductions were made, then consulted with patient to assess needs related to . Mother led the conversation with her?plans to feed?her infant, the?experience so far and states her [id number] is an IBCLC in communication with her via texting. Encouraged understanding of the benefits of skin to skin (demonstrating unwrapping and placing upright on her chest), stimulating with massage touch, changing positions to encourage wakefulness, how to watch for early feeding cues, responsive feeding, feeding on demand (aiming for 8-12 times in 24 hours, about every 2-3 hours), milk production, hand expression, building/maintaining a milk supply, duration of feeding, signs of adequate intake/output and how to record on the feeding sheet. Mother works well with her with encouragement and education. Reviewed positioning and ear, shoulder, hip alignment, supporting the breast to facilitate a deep latch, asymmetrical latch (off-center), leading with the chin with a big, open, wide gape and body close to mother. attempts to latch, however; latch attempts are shallow and doesn't maintain. Infant does have a recessed chin and we considered the nipple shield but not useful at this time as infant is not giving us a big, open, wide gape to latch effectively to a nipple shield either. We practiced hand expression and finger fed a few drops to infant. Mother voiced understanding of skin to skin, stimulating with massage touch, responsive feedings, hand expressed colostrum, talking to to encourage if it has been 2 -2.5 hours since the start of the last , to call if infant does not latch, difficulty waking to breastfeed, or if there is discomfort with . Resources used for education were facilitated with the visual educational handouts, tool, mom and baby guide and will need reinforcement with encouragement. Inpatient/outpatient resources provided with feeding sheet, name written on the communication board, and the mom/baby guide. Parents voiced understanding of information, demonstrated learning and will call if there is a request for assistance. Reported to the Primary RN. [id number] Infant is not latching to mother at this time. Mother is pumping and has pumped 5mls of breast milk. We discussed the risks and benefits of syringe and spoon feeding. We reviewed the common infant behavior the 1st 24 hours, then prepared them for the 2nd 24 hours as it is approaching. Mother led the conversation with her experience so far, plan to feed her , and she is confident to continue working to breastfeed her infant, when to call for assistance, denies any additional assistance or education at this time. Reinforced understanding of milk production, transition of milk, signs of adequate intake, transition of stool, prevention/relief of engorgement, plugged ducts, mastitis, responsive watching for feeding cues, the different methods of stimulating infant to breastfeed 1-3 hours after the start of the last feeding, community resources ([facility] IBCLC and Kristen at the office), and using the resource of the mom and baby guide. Mother voiced understanding of the education shared. Reported to the Primary RN.
[2023-06-20 20:14] VITALS: BP 142/97; PULSE 56; RESP 18; TEMP 36.6
[2023-06-21] MEDS: ACETAMINOPHEN 325 MG TABLET 650 MG PO (08:41)
[2023-06-21] MEDS: DOCUSATE SODIUM 100 MG CAPSULE PO (08:42)
[2023-06-21] MEDS: MULTIVIT/MIN/PREN/FOL AC/IRON TABLET 1 TAB PO (08:42)
[2023-06-21] MEDS: WITCH HAZEL 40 PADS 1 PAD TOPICAL (08:42)
[2023-06-21] MEDS: BENZOCAINE 20% AER SPR (*SP) 56 GM CAN 1 SPRAY TOPICAL (08:42)
[2023-06-21 08:43] VITALS: BP 139/88; PULSE 77; RESP 18; TEMP 36.6; O2SAT 100
[2023-06-23 11:35] VITALS: BP 152/85; PULSE 87; RESP 18; TEMP 37.3; O2SAT 97
== END 2023-06-21 10:29 | disposition home or self-care (01) | DRG 807 ==
LOC: ANHLDR 06-19 08:40 → ANHOB2 06-19 16:12
PROVIDERS: Admitting Provider Obstetrics & Gynecology; PCP Family Medicine Sports Medicine; Visit Provider Obstetrics & Gynecology
DX: O13.4 Gestational [pregnancy-induced] hypertension without significant proteinuria, complicating childbirth (principal); O70.1 Second degree perineal laceration during delivery; Z37.0 Single live birth; O69.81X0 Labor and delivery complicated by cord around neck, without compression, not applicable or unspecified; Z3A.38 38 weeks gestation of pregnancy
CPT/HCPCS: 36415; 80053; 84550; 85014; 85018; 85025; 86592; 86850; 86900; 86901; 88307; A9270; J2590; J2795; J3010; J7120

== ENCOUNTER 2025-04-30 05:41 | Emergency (ER) | payer BC, SELFPAY ==
[2025-04-30] VITALS (7 sets, daily range): BP systolic 120–154; BP diastolic 76–84; PULSE 68–92; RESP 16–20; TEMP 36.8; O2SAT 100
--- NOTE | ~2025-04-30 | US_ITS ---
EXAMINATION: US OB <=14 wk fetus w TV DATE: 04/30/2025 07:52 INDICATION: Right pelvic pain. TECHNIQUE: Real-time transabdominal and transvaginal pelvic ultrasound was performed. COMPARISON: None. FINDINGS: TRANSABDOMINAL ULTRASOUND: The uterus measures 7.1 x 3.8 x 5.2 cm. TRANSVAGINAL ULTRASOUND: The endometrial complex is thickened to 2.5 cm. There is no visible intrauterine gestational sac. The right ovary measures 4.1 x 1.8 x 2.5 cm. The left ovary measures 3.1 1.6 x 2.6 cm. There is normal vascular flow in the ovaries. There is physiologic free fluid in the pelvis. IMPRESSION: 1. No visible intrauterine gestational sac, which may be normal in early . Spontaneous , ectopic , and gestational trophoblastic disease are not excluded. Serial beta-hCGs are recommended. Reviewed, dictated and finalized at location E. ILITY STRATEGIST IMPRESSION: 1. No visible intrauterine gestational sac, which may be normal in early pregn carlee. Spontaneous , ectopic , and gestational trophoblastic di sease are not excluded. Serial beta-hCGs are recommended.
--- OUTSIDE RECORDS SUMMARY | 2025-04-30 05:43 | XMS_ITS | Encounter Summary ---
Author Organization [facility] Address [address] [place] [address] Care Team Providers Care Mannequin Coloring Artist Name Role Phone Jann Monaco MD Primary Care Provider [phone] Encounter Details Date Type Department Care Team (Late st Contact Info) Description 09/10/2023 [facility] [address] [place] [phone] [facility] Provider Schedule Appointment - Annual Physical Social History Tobacco Use Types Packs/Day Years Used Date Smoking Tobacco: Never Smokeless Tobacco: Never Alcohol Use Standard Drinks/Week Comments Never 0 (1 standard drink = 0.6 oz pur e alcohol) AUDIT-C Answer Date Recorded Q1: How often do you have a drink containing alc ohol? Never 04/13/2020 Average Number of Drinks Not on file 020 Frequency of Binge Drinking Not on file 10/2019 PHQ-2 Answer Date Recorded PHQ-2 Score - If the patient scores above 3, please move on to questions 3-9 0 02/28/2021 Comments No Sex and Gender Information Value Date Recorded Sex Assigned at Not on file Legal Sex Female 8:25 PM CDT Gender Identity Not on file Sexual Orientation Not on file documented as of this encounter Plan of Treatment Not on file documented as of this encounter Visit Diagnoses Not on filedocumented in this encounter Additional Health Concerns Assessment Noted Time PHQ-9 Depression Total Score: 0 02/29/20 21 4:22 PM CDT documented as of this encounter Care Teams Mannequin Coloring Artist Relationship Specialty Start Date End Date Jann Monaco MD [address] [facility] [address] [place] [address] PCP - General FAMILY PRACTICE 04/13/20 documented as of this encounter
--- OUTSIDE RECORDS SUMMARY | 2025-04-30 05:43 | XMS_ITS | Clinical Summary ---
Author Organization [facility] Address [address] [place] [address] Care Team Providers Care Chromosomal Disorders Counselor Name Role Phone Jann Monaco MD Primary Care Provider Allergies Active Allergy Reactions Criticality Noted Date Comments Amoxicillin Unknown 10/11/2012 Penicillins Unknown 12/16/2003 Medications No known medications Active Problems No known active problems Immunizations Immunization Administration Dates Next Due Dtap (Generic) 12/13/1992, 1,09/13/1989,1988,1988 Flucelvax 6 Months+ (Prefill ed Syringe) 03/04/2020 Hepatitis B 09/21/1997,04/13/1997,03/16/1997 Influenza Adult (Generic) 03/05/2019,03/06/2018, 03/19/2017 MMR (Generic) 12/13/1992,02/11/1991 Opv 12/13/1992, 1,09/13/1989,1988,1988 Td 12/29/2001 Tdap (Generic) 11/01/2016,11/12/2015 Family History Medical History Relation Comments Hypertension Father Hypertension Mother Relation Status Comments Father Alive Mother Alive Social History Tobacco Use Types Packs/Day Years [...] on file Sexual Orientation Not on file Last Filed Vital Signs Vital Sign Reading Time Taken Comments Blood Pressure 143/86 02/28/2021 4:48 PM CDT Pulse 70 02/28/2021 4:22 PM CDT Temperature 36.2 C (97.1 F) 02/28/2021 4:22 PM CDT Respiratory Rate 18 02/28/2021 4:22 PM CDT Oxygen Saturation 100% 02/28/2021 4:22 PM CDT Inhaled Oxygen Concentration - - Weight 90.9 kg (200 lb 6.4 oz) 02/28/2021 4:22 P M CDT Height 171.5 cm (5' 7.5) 02/28/2021 4:22 PM CDT Body Mass Index 30.92 02/28/2021 4:22 PM CDT Plan of Treatment Health Maintenance Due Date Last Done Comments Cervical Cancer Screening Pap Smear (Age 30 to 64) Every 3 Years 1988 Hepatitis C 02/06/2006 HPV Vaccines (1 - 3-dose SCDM series) 02/06/2015 Cervical Cancer Screening Pap with HPV Testing (Age 30 to 64) Every 5 Years 02/06/2018 Cervical Cancer Screening with HPV 02/06/2018 Annual Physical 02/28/2022 02/28/2021 PHQ-2 (Physician [place]) 06/09/2024 COVID-19 Vaccine ( season) 2025 Influenza Adult (#1) 2025 03/04/2020, 03/05/2019, 03/06/2018, Additional history exists DTaP, Tdap and Td Vaccines (8 - Td or Tdap) 11/01/2026 11/01/2016, 11/12/2015, 12/29/2001, Additional history exists Hepatitis B Vaccines Completed 09/21/1997, 04/13/1997, 03/16/1997 Hepatitis A Vaccines Aged Out No long er eligible based on patient's age to complete this topic Meningococcal B Vaccine Aged Out No l onger eligible based on patient's age to complete this topic Meningococcal Vaccine Aged Out No vivian jeremie eligible based on patient's age to complete this topic Pneumococcal Vaccine: Pediatrics (0 to 5 Years) and At-Risk Patients (6 to 49 Years) Aged Out No longer eligible based on patient's age to complete this topic RSV Immunizations Under 20 Months Aged Out No longer eligible based on patient's age to complete this topic Insurance [facility] Care Teams Chromosomal Disorders Counselor Relationship Specialty Start Date End Date Jann Monaco MD [address] [address] PCP - General FAMILY PRACTICE 04/13/20
--- OUTSIDE RECORDS SUMMARY | 2025-04-30 05:43 | XMS_ITS | Clinical Summary ---
Author Organization [facility] [address] Address [address] [place] [phone] Care Team Providers Care Bolt Labeler Name Role Phone Jann Monaco MD Primary Care Provider + Allergies Active Allergy Reactions Criticality Noted Date Comments Penicillins Rash High 11/11/2022 Medications methylPREDNISol one (Medrol, Bruce,) 4 mg DosepackIndicat ions:Non-recurr ent acute serous otitis media of both ears follow package directions 1 packet Active Active Problems No known active problems Social History Tobacco Use Types Packs/Day Years Used Date Smoking Tobacco: Never Smokeless Tobacco: Never Comments Unknown Sex and Gender Information Value Date Recorded Sex Assigned at Not on file Legal Sex Female 6:23 AM CDT Gender Identity Female 12/12/2023 9:27 AM CDT Sexual Orientation Not on file Last Filed Vital Signs Vital Sign Reading Time Taken Comments Blood Pressure 140/90 07/23/2024 4:32 PM CUT FILER Pulse 80 07/23/2024 4:32 PM CUT FILER Temperature 36.6 C (97.9 F) 07/23/2024 4:32 PM CUT FILER Respiratory Rate 18 07/23/2024 4:32 PM CUT FILER Oxygen Saturation 98% 07/23/2024 4:32 PM CUT FILER Inhaled Oxygen Concentration - - Weight 97.5 kg (215 lb) 07/23/2024 4:32 PM CUT FILER Height 172.7 cm (5' 8) 04/03/2024 3:54 PM CDT Body Mass Index 32.69 04/03/2024 3:54 PM CDT Plan of Treatment Health Maintenance Due Date Last Done Comments Cervical Cancer Screening 1988 Depression Screening 1988 Hepatitis C Screening 1988 Regular Well Visit/Exam 18-64 02/06/2006 HPV Vaccines (1 - 3-dose SCDM series) 02/06/2015 Covid-19 Vaccine ( - season) 2025 04/23/2021, 08/05/2020, 07/08/2020 Influenza Vaccine (#1) 2025 , 04/01/2023, 04/02/2021, Additional history exists DTaP/Tdap/Td Vaccine (9 - Td or Tdap) 04/30/2033 04/30/2023, 11/01/2016, 11/12/2015, Additional history exists Varicella Vaccines Completed 12/13/1992, 02/11/1991 Hepatitis B Screening Completed 09/21/1997 , 04/13/1997, 03/16/1997 Pneumococcal vaccine <65 Aged Out No longer eligible based on patient's age to complete this topic [place] [place] [address] Member Subscriber Plan / Payer (Ef fective 2021-Present) Name:Cheyenne Solorzano Relation to Subscriber:Self Name:Cheyenne Solorzano Payer ID:[id number] (NAIC) Type: OTHER Address: [facility] [id number] [place] [phone] Care Teams Bolt Labeler Relationship Specialty Start Date End Date Jann Monaco MD [address] [facility] [address] [place] [address] PCP - General Family Medicine 10/26/24
--- OUTSIDE RECORDS SUMMARY | 2025-04-30 05:43 | XMS_ITS | Clinical Summary ---
Author Organization [employer] [facility] Address [address] [place] [address] Care Team Providers Care Milk Sampler Name Role Phone Unavailable Primary Care Provider Unavailabl e Allergies Active Allergy Reactions Criticality Noted Date Comments Penicillins Rash High 11/11/2022 Medications ondansetron (ZOFRAN) 4 mg Tablet Take 1 Tablet (4 mg) by mouth every 6 hours. 30 Tablet 1 01/03/2023 11:32 AM CDT 3 Active sulfamethoxazole- trimethoprim (BACTRIM DS) 800-160 mg tablet Take 1 Tablet by mouth every 12 hours. 20 Tablet 01/27/2023 4:13 PM CDT 3 Active nitrofurantoin macrocrystaL (MACRODANTIN) 100 mg Capsule Take 1 Capsule (100 mg) by mouth daily with food. 30 Capsule 2 06/16/2023 10:07 AM RESISTANCE BRAZER 3 Active ibuprofen (MOTRIN) 600 mg tablet Take One Tablet By Mouth Every 6 Hours As Needed for Cramping 30 Tablet 06/21/2023 10:54 AM RESISTANCE BRAZER 4 Active norethindrone, Contraceptive, 0.35 mg Tablet Take 1 tablet (0.35 mg) by mouth daily. Start day 1 of menstrual cycle. 84 Tablet 3 4 Active methylPREDNISolon e (MEDROL DOSPACK) 4 mg Tablets, Dose Pack Take tablets as directed on package. 21 Tablet 07/23/2024 5:00 PM RESISTANCE BRAZER 5 Active nitrofurantoin (MACROBID) 100 mg capsule Take 1 Capsule (100 mg) by mouth every 12 hours for 5 days. MUST TAKE WITH FOOD. 10 Capsule 5 04/30/20 25 Active Encounters Date Type Department Care Team Description 03/29/2025 External Device Data [facility] Provider, Abstract from Last 3 Months Social History Tobacco Use Types Packs/Day Years Used Date Smoking Tobacco: Never Assessed Comments Unknown Sex and Gender Information Value Date Recorded Sex Assigned at Not on file Legal Sex Female 9:07 AM CDT Gender Identity Not on file Sexual Orientation Not on file Plan of Treatment Health Maintenance Due Date Last Done Comments DTAP/TDAP/TD VACCINES (1 - Tdap) 02/06/2007 HEPATITIS B VACCINES (1 of 3 - 19+ 3-dose series) 01/09 HPV/Cotest (21-29) 02/06/2009 HPV VACCINES (1 - 3-dose SCDM series) 02/06/2015 CERVICAL CANCER SCREENING 02/06/2018 HPV/Cotest (30-65) 02/06/2018 PAP SMEAR 02/06/2018 INFLUENZA VACCINE (#1) 2025 Insurance RX [employer] Commercial RX [employer] (INTERNAL) [facility] [employer]
--- OUTSIDE RECORDS SUMMARY | 2025-04-30 05:43 | XMS_ITS | Encounter Summary ---
Author Organization [facility] Address [address] [place] [address] Care Team Providers Care Engineering Instructor Name Role Phone Jann Monaco MD Primary Care Provider [phone] Encounter Details Date Type Department Care Team (Late st Contact Info) Description 07/05/2002 Abstract [facility] Conversion Md, Generic ConversionMD Social History Tobacco Use Types Packs/Day Years [...] filedocumented in this encounter Additional Health Concerns Infection Onset Date Last Indicated Resolved Time COVID-19 Rule Out 04/13/2020 04/13/2020 04/16/2020 6:40 AM SAWING AND ASSEMBLY SUPERVISOR documented as of this encounter Care Teams Engineering Instructor Relationship Specialty Start Date End Date Jann Monaco MD [address] [address] PCP - General FAMILY PRACTICE 04/13/20 documented as of this encounter
--- OUTSIDE RECORDS SUMMARY | 2025-04-30 05:43 | XMS_ITS | Clinical Summary ---
Author Organization [facility] Address [address] [place] [address] Care Team Providers Care Salon Customer Experience Specialist Name Role Phone Unavailable Primary Care Provider Unavailabl e Source Comments [facility],non-owned Affiliates and Associated Physician Practices is amultiple site organization consisting of ambulatory clinics and hospital sitesin [place], [place], [place] and [place]. This disclosure is being madepursuant to the Care Everywhere program and may not contain all information available regarding this patient. Last updated 18.[facility] Allergies Active Allergy Reactions Criticality Noted Date Comments Amoxicillin Rash Medium 01/10/2023 Social History Tobacco Use Types Packs/Day Years Used Date Smoking Tobacco: Never Assessed Comments No Sex and Gender Information Value Date Recorded Sex Assigned at Not on file Legal Sex Female 10:06 AM CDT Gender Identity Not on file Sexual Orientation Not on file Plan of Treatment Health Maintenance Due Date Last Done Comments HIV SCREENING 02/06/2003 HEPATITIS C SCREENING 02/02/2006 DTAP/TDAP/TD VACCINES (1 - Tdap) 02/06/2007 HEPATITIS B VACCINE (1 of 3 - 19+ 3-dose series) 02/06/2007 Cervical Cancer Screening 02/06/2009 PAP SMEAR 02/06/2009 HPV VACCINE (1 - 3-dose SCDM series) 02/06/2015 PAP with HPV 02/06/2018 DEPRESSION SCREENING 06/09/2024 COVID-19 VACCINE (2 - 2024- season) 2025 04/23/2021 INFLUENZA VACCINE (#1) 2025 , 03/04/2020, 03/05/2019, Additional history exists ZOSTER VACCINE (1 of 2) 02/06/2038 HIB VACCINE Aged Out No longer eligi ble based on patient's age to complete this topic MENINGOCOCCAL (Group B) VACCINE SHARED DECISION-MAKING Aged Out No longer eligible based on patient's age to complete this topic MENINGOCOCCAL GROUPS A/C/Y/W VACCINE Aged Out No longer eligible based on patient's age to complete this topic PNEUMOCOCCAL VACCINE Aged Out No long er eligible based on patient's age to complete this topic Insurance [facility] SELF PAY NO INSURANCE Member Subscriber Plan / Payer (Ef fective for All Dates) Name:Cheyenne Solorzano Member ID:Not on file Relation to Subscriber:Not on file Name:CHEYENNE SOLORZANO Subscriber ID:Not on file Address: [address] [place] [phone] Payer ID:Not on file Group ID:Not on file Type:Self Pay Address: [place], [place]
--- NOTE | 2025-04-30 05:59 | ED.ABDPAIN ---
HPI - Abdominal Pain General Chief Complaint: Abdominal Pain <Tio Mathew MD - Last Filed: 04/30/25 06:56> Stated Complaint: abdominal cramping, UTI <Tio Mathew MD - Last Filed: 04/30/25 06:56> Time Seen by Provider: 04/30/25 05:50 <Tio Mathew MD - Last Filed: 04/30/25 06:56> History of Present Illness HPI narrative: 35-year-old female presents to the emergency department today with complaints of urinary tract infection lower abdominal/ pelvic cramping. States she was prescribed Macrobid by her primary care provider last week and completed the course of Macrobid. Most of her symptoms of UTI have subsided as she was previously having back pain and dysuria but that resolved but now she still having some blood in her urine and lower abdominal cramping. states she is trying for . States she has no history of UTIs aside from when she is . No abdominal surgical history such as C-sections and she still has all her organs. Was otherwise in her normal state of health. Denies any fever, chills, traumatic injuries. No vaginal bleeding or discharge. No leakage of fluids. No nausea vomiting, diarrhea, constipation. <Tio Mathew MD - Last Filed: 04/30/25 06:56> Related Data Home Medications: Home Medications ?Medication ?Instructions ?Recorded ?Confirmed ?Last Taken ?Type vitamins-iron fumarate 65 1 tablet PO DAILY 11/26/22 11/08/24 06/18/23 08:00 History mg iron-folic acid 1 mg tablet <Tio Mathew MD - Last Filed: 04/30/25 06:56> Allergies/Adverse Reactions: Allergies Allergy/AdvReac Type Severity Reaction Status Date / Time amoxicillin Allergy Intermediate Rash Verified 04/30/25 07:17 <Tio Mathew MD - Last Filed: 04/30/25 06:56> Review of Systems Review of Systems: As reviewed above in HPI <Tio Mathew MD - Last Filed: 04/30/25 06:56> All systems reviewed & are unremarkable except as noted in HPI and below <Tio Mathew MD - Last Filed: 04/30/25 06:56> [facility] Surgical History Surgical History: Surgical History H/O sinus surgery 1996 <Tio Mathew MD - Last Filed: 04/30/25 06:56> Family History Family History: Family History Father Hypertension Grandparent Cerebrovascular accident maternal grandfather Other Cerebrovascular accident maternal aunt <Tio Mathew MD - Last Filed: 04/30/25 06:56> Social History Social History: Social History Smoking status: Never smoker Second hand tobacco smoke exposure: No Alcohol intake: never Substance use: never Substance use type: does not use Do You Feel Safe in your Home?: Yes Lack of Transportation: No Lack of Food: Never True Current Housing: I Have Housing Concerned About Future Housing: No Difficulty Paying Gas/Electric Bills: No Difficulty Paying for Meds: No Currently Unemployed: No Education: Bachelor's Degree Difficulty w/ Childcare or Family Care: No Living arrangements: with family Additional living arrangements comments: spouse Occupation/Education: 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 Mucous membranes moist. NECK: Supple. CHEST: [Clear to auscultation. No respiratory distress.] HEART: [Regular rate and rhythm]. No murmur heard. [Normal peripheral pulses.] ABDOMEN: soft and nondistended. No reproducible tenderness of palpation. No peritonitis. EXTREMITIES: Normal range of motion. [No edema.] SKIN: Warm, dry, no rash. NEURO: [No focal deficits]. Alert and oriented [x3.] PSYCH: [Normal mood and affect.] <Tio Mathew MD - Last Filed: 04/30/25 06:56> Course Course Emergency Course: not identified on ultrasound. Ob contacted. Call Friday to schedule close follow-up and repeat blood work. Patient verbalized understanding of treatment plan. Discharge home with cephalexin for UTI. <Anderson Preston MD - Last Filed: 04/30/25 10:51> Vital Signs Vital signs: Vital Signs Pulse Rate 92 04/30/25 05:48 Respiratory Rate 20 04/30/25 05:48 Blood Pressure 154/84 H 04/30/25 05:48 Pulse Oximetry 100 04/30/25 05:48 Temperature 98.3 F 04/30/25 06:07 Pulse Rate 77 04/30/25 10:36 Respiratory Rate 17 04/30/25 10:36 Blood Pressure 131/80 04/30/25 10:36 Pulse Oximetry 100 04/30/25 10:36 <Tio Mathew MD - Last Filed: 04/30/25 06:56> Vital Signs Pulse Rate 92 04/30/25 05:48 Respiratory Rate 20 04/30/25 05:48 Blood Pressure 154/84 H 04/30/25 05:48 Pulse Oximetry 100 04/30/25 05:48 Temperature 98.3 F 04/30/25 06:07 Pulse Rate 77 04/30/25 10:36 Respiratory Rate 17 04/30/25 10:36 Blood Pressure 131/80 04/30/25 10:36 Pulse Oximetry 100 04/30/25 10:36 <Anderson Preston MD - Last Filed: 04/30/25 10:51> MDM - Abdominal Pain MDM Narrative Medical decision making narrative: 35-year-old female presents to the emergency department today with complaints of urinary tract infection lower abdominal/ pelvic cramping. States she was prescribed Macrobid by her primary care provider last week and completed the course of Macrobid. Most of her symptoms of UTI have subsided as she was previously having back pain and dysuria but that resolved but now she still having some blood in her urine and lower abdominal cramping. states she is trying for . States she has no history of UTIs aside from when she is . No abdominal surgical history such as C-sections and she still has all her organs. Was otherwise in her normal state of health. Denies any fever, chills, traumatic injuries. No vaginal bleeding or discharge. No leakage of fluids. No nausea vomiting, diarrhea, constipation. Reassuring examination she is hemodynamically stable. Soft nontender nondistended abdomen. Patient's point of care test was positive however and we did discuss this with the patient. Concern presently for abdominal cramping and versus ectopic versus round ligament pain verses UTI versus cystitis. Less likely intra-abdominal infection. She already completed antibiotics. Laboratory studies and ultrasound of the pelvis obtained as well as a quantitative beta hCG level. Patient given fluids and Tylenol. Patient does have evidence of urinary tract infection with red and white blood cells. Given a dose of Rocephin here IV. Patient care signed over to morning physician pending ultrasonography and final disposition likely discharge home with OB follow-up assuming unremarkable workup. <Tio Mathew MD - Last Filed: 04/30/25 06:56> Medical Records Attestation: I reviewed the patient's medical records. <Tio Mathew MD - Last Filed: 04/30/25 06:56> Lab Data Attestation: I reviewed the patient's lab results. <Tio Mathew MD - Last Filed: 04/30/25 06:56> Result diagrams: 04/30/25 06:05 04/30/25 06:05 <Tio Mathew MD - Last Filed: 04/30/25 06:56> Labs: Lab Results 04/30/25 04/30/25 Range/Units 06:05 06:05 WBC 7.4 (4.5-10.0) K/mm3 RBC 5.02 (4.2-5.4) M/mm3 Hgb 14.3 D (12.0-15.0) g/dL Hct 42.6 (37.0-47.0) % MCV 84.9 (80-100) fl MCH 28.5 (26-34) pg MCHC 33.6 (32-36) g/dl RDW 12.7 (11.5-14.5) % Plt Count 269 (150-375) k/mm3 MPV 9.6 (7.4-10.4) fl Immature Gran % (Auto) 0.4 (0-0.5) % Neut % (Auto) 68.0 (45.5-73.1) % Lymph % (Auto) 20.5 (18.3-44.2) % [place] % (Auto) 7.2 (2.6-8.5) % Eos % (Auto) 3.4 (0-4.4) % Baso % (Auto) 0.5 (0.2-1.2) % Lymph # (Auto) 1.52 (0.9-3.2) K/mm3 [place] # (Auto) 0.5 (0.1-0.6) K/mm3 Eos # (Auto) 0.3 (0-0.3) K/mm3 Baso # (Auto) 0.0 (0.0-0.1) K/mm3 Abs Immat Gran (auto) 0.03 (0.00-0.031) K/mm3 Absolute Neuts (auto) 5.0 (1.3-6.7) K/mm3 Absolute Nucleated RBC 0.000 (0.0-0.012) K/mm3 Nucleated RBC % 0.0 (0.0-0.2) % Sodium 137 (137-145) mmol/L Potassium 3.6 (3.4-5.0) mmol/L Chloride 107 (98-107) mmol/L Carbon Dioxide 22 (22-30) mmol/L Anion Gap 8 (4-12) mmol/L BUN 10 D (7-17) mg/dL Creatinine 0.69 L (0.7-1.0) mg/dL Estim Creat Clear Calc 118 ml/min Estimated GFR > 60 (59 - ) Glucose 105 (65-110) mg/dL Calcium 8.8 (8.4-10.2) mg/dL Total Bilirubin 0.9 (0.2-1.3) mg/dL AST 23 (14-36) U/L ALT 16 (6-35) U/L Alkaline Phosphatase 64 (38-126) U/L Total Protein 7.8 (6.3-8.2) g/dL Albumin 4.5 (3.5-5.1) g/dL Lipase 79 (23-300) U/L Beta HCG, Quant 127.00 Cancelled mIU/ML Urine Color Dark yellow (Yellow) Urine Appearance Turbid H (Clear) Urine pH 6.5 (5.0-9.0) Ur Specific [place] 1.022 (1.001-1.035) Urine Protein 1+ H (Negative) mg/dL Urine Glucose (UA) Negative (Negative) mg/dL Urine Ketones Trace H (Negative) mg/dL Ur Blood (Man) 3+ H (Negative) Urine Nitrate Negative (Negative) Urine Bilirubin Negative (Negative) Urine Urobilinogen 1.0 (<2.0) mg/dL Leukocyte Esterase Rfl 3+ H (Negative) MELLISSA/UL Urine RBC >100 H (0-2) /hpf Urine WBC >100 H (0-3) /hpf Ur Squamous Epith Cells Occasional (Few) /hpf Urine Bacteria 1+ H /hpf Urine Casts 0-2 <Tio Mathew MD - Last Filed: 04/30/25 06:56> Lab Results 04/30/25 04/30/25 Range/Units 06:05 06:05 WBC 7.4 (4.5-10.0) K/mm3 RBC 5.02 (4.2-5.4) M/mm3 Hgb 14.3 D (12.0-15.0) g/dL Hct 42.6 (37.0-47.0) % MCV 84.9 (80-100) fl MCH 28.5 (26-34) pg MCHC 33.6 (32-36) g/dl RDW 12.7 (11.5-14.5) % Plt Count 269 (150-375) k/mm3 MPV 9.6 (7.4-10.4) fl Immature Gran % (Auto) 0.4 (0-0.5) % Neut % (Auto) 68.0 (45.5-73.1) % Lymph % (Auto) 20.5 (18.3-44.2) % [place] % (Auto) 7.2 (2.6-8.5) % Eos % (Auto) 3.4 (0-4.4) % Baso % (Auto) 0.5 (0.2-1.2) % Lymph # (Auto) 1.52 (0.9-3.2) K/mm3 [place] # (Auto) 0.5 (0.1-0.6) K/mm3 Eos # (Auto) 0.3 (0-0.3) K/mm3 Baso # (Auto) 0.0 (0.0-0.1) K/mm3 Abs Immat Gran (auto) 0.03 (0.00-0.031) K/mm3 Absolute Neuts (auto) 5.0 (1.3-6.7) K/mm3 Absolute Nucleated RBC 0.000 (0.0-0.012) K/mm3 Nucleated RBC % 0.0 (0.0-0.2) % Sodium 137 (137-145) mmol/L Potassium 3.6 (3.4-5.0) mmol/L Chloride 107 (98-107) mmol/L Carbon Dioxide 22 (22-30) mmol/L Anion Gap 8 (4-12) mmol/L BUN 10 D (7-17) mg/dL Creatinine 0.69 L (0.7-1.0) mg/dL Estim Creat Clear Calc 118 ml/min Estimated GFR > 60 (59 - ) Glucose 105 (65-110) mg/dL Calcium 8.8 (8.4-10.2) mg/dL Total Bilirubin 0.9 (0.2-1.3) mg/dL AST 23 (14-36) U/L ALT 16 (6-35) U/L Alkaline Phosphatase 64 (38-126) U/L Total Protein 7.8 (6.3-8.2) g/dL Albumin 4.5 (3.5-5.1) g/dL Lipase 79 (23-300) U/L Beta HCG, Quant 127.00 Cancelled mIU/ML Urine Color Dark yellow (Yellow) Urine Appearance Turbid H (Clear) Urine pH 6.5 (5.0-9.0) Ur Specific [place] 1.022 (1.001-1.035) Urine Protein 1+ H (Negative) mg/dL Urine Glucose (UA) Negative (Negative) mg/dL Urine Ketones Trace H (Negative) mg/dL Ur Blood (Man) 3+ H (Negative) Urine Nitrate Negative (Negative) Urine Bilirubin Negative (Negative) Urine Urobilinogen 1.0 (<2.0) mg/dL Leukocyte Esterase Rfl 3+ H (Negative) MELLISSA/UL Urine RBC >100 H (0-2) /hpf Urine WBC >100 H (0-3) /hpf Ur Squamous Epith Cells Occasional (Few) /hpf Urine Bacteria 1+ H /hpf Urine Casts 0-2 <Anderson Preston MD - Last Filed: 04/30/25 10:51> Imaging Data Radiologist's impression: Ultrasound OB 1st trimester: Endometrium 1.8 cm in thickened. The ordinary grayscale Doppler and spectral waveform both ovaries. Hers unremarkable uterus. No substantial fluid in the pelvis. <Anderson Preston MD - Last Filed: 04/30/25 10:51> Discharge Plan Discharge Clinical Impression: Abdominal pain during , UTI (urinary tract infection) <Tio Mathew MD - Last Filed: 04/30/25 06:56> Patient Disposition: Home <Tio Mathew MD - Last Filed: 04/30/25 06:56> Condition: Stable <Tio Mathew MD - Last Filed: 04/30/25 06:56> Instructions: Urinary Tract Infection in Women (ED), Abdominal Pain in (ED) <Tio Mathew MD - Last Filed: 04/30/25 06:56> Additional Instructions: Return to the emergency department if you develop severe abdominal pain, severe nausea and vomiting to the point where you are unable to keep down fluids, if you develop chest pain or difficulty breathing, blood in your stool, dizziness or fainting, or if you develop any other new or concerning symptoms as these could be signs of more serious medical illness. Try to stay well hydrated. Follow-up with your computer information systems professor for further evaluation of your as a intrauterine has not yet been identified. Your likely in the early stages of but we need to rule out ectopic . Call Friday morning to schedule your appointment. <Tio Mathew MD - Last Filed: 04/30/25 06:56> Patient Language: Lao <Tio Mathew MD - Last Filed: 04/30/25 06:56> Prescriptions: New cephalexin 500 mg capsule 500 mg PO Q8H 7 Days Qty: 21 0RF No Action vit-iron fum-folic ac 65 mg iron- 1 mg tablet 1 tablet PO DAILY <Tio Mathew MD - Last Filed: 04/30/25 06:56> Follow-up/Referrals: Kory Pineda MD [Physician, PUNCH BOX TENDER] - 2 Days Jacinda,Jann Wolfe MD [Primary Care Provider, Unknown] <Tio Mathew MD - Last Filed: 04/30/25 06:56>
[2025-04-30] MEDS: ACETAMINOPHEN 500 MG TABLET 1000 MG PO (06:13)
[2025-04-30] MEDS: LACTATED RINGERS 1,000 ML 999 ML IV CONT (06:14)
[2025-04-30 06:17] LABS: Hematocrit 42.6 % (37.0-47.0); Hemoglobin 14.3 g/dL (12.0-15.0); Immature Granulocyte Percent A 0.4 % (0-0.5); Lymphocytes Absolute Auto 1.52 K/mm3 (0.9-3.2); Mean Corpuscular HGB Conc 33.6 g/dl (32-36); Mean Corpuscular Hemoglobin 28.5 pg (26-34); Mean Corpuscular Volume 84.9 fl (80-100); Nucleated Red Blood Cells Absolute Auto 0.000 K/mm3 (0.0-0.012); Nucleated Red Blood Cells Perc 0.0 % (0.0-0.2); Platelet Count Result 269 k/mm3 (150-375); Red Blood Count 5.02 M/mm3 (4.2-5.4); White Blood Count 7.4 K/mm3 (4.5-10.0)
--- OUTSIDE RECORDS SUMMARY | 2025-04-30 06:18 | XMS_ITS | Clinical Summary ---
Author Organization [employer] [facility] Address [address] [place] [address] Care Team Providers Care Knurling Machine Operator Name Role Phone Unavailable Primary Care Provider [...] food. 30 Capsule 2 06/16/2023 10:07 AM MICA LAYER 3 Active ibuprofen (MOTRIN) 600 mg tablet Take One Tablet By Mouth Every 6 Hours As Needed for Cramping 30 Tablet 06/21/2023 10:54 AM MICA LAYER 4 Active norethindrone, Contraceptive, 0.35 mg Tablet Take 1 tablet (0.35 mg) by mouth daily. Start day 1 of menstrual cycle. 84 Tablet 3 4 Active methylPREDNISolon e (MEDROL DOSPACK) 4 mg Tablets, Dose Pack Take tablets as directed on package. 21 Tablet 07/23/2024 5:00 PM MICA LAYER 5 Active nitrofurantoin (MACROBID) 100 mg capsule [...]
--- OUTSIDE RECORDS SUMMARY | 2025-04-30 06:18 | XMS_ITS | Clinical Summary ---
Author Organization [facility] Address [address] [place] [address] Care Team Providers Care Monorail Helper Name Role Phone Jann Monaco MD Primary [...] 02/06/2018 Annual Physical 02/28/2022 02/28/2021 PHQ-2 (Physician [place]) 06/09/2024 COVID-19 Vaccine ( season) 2025 Influenza [...] patient's age to complete this topic Insurance [facility] Care Teams Monorail Helper Relationship Specialty Start Date End Date Jann Monaco MD [address] [address] PCP - General FAMILY PRACTICE 04/13/20
--- OUTSIDE RECORDS SUMMARY | 2025-04-30 06:18 | XMS_ITS | Clinical Summary ---
Author Organization [facility] Address [address] [place] [address] Care Team Providers Care Loan Services Professional Name Role Phone Unavailable Primary Care Provider Unavailabl e Source Comments [facility],non-owned Affiliates and Associated Physician Practices is amultiple site organization consisting of ambulatory clinics and hospital sitesin [place], [place], [place] and [place]. This disclosure is being madepursuant to the Care Everywhere program and may not contain all information available regarding this patient. Last updated 18.[facility] Allergies Active Allergy Reactions Criticality Noted Date [...] patient's age to complete this topic Insurance [facility] SELF PAY NO INSURANCE Member Subscriber Plan / Payer (Ef fective for All Dates) Name:Cheyenne Solorzano Member ID:Not on file Relation to Subscriber:Not on file Name:CHEYENNE SOLORZANO Subscriber ID:Not on file Address: [address] [place] [id number] Payer ID:Not on file Group ID:Not on file Type:Self Pay Address: [place], [place]
--- OUTSIDE RECORDS SUMMARY | 2025-04-30 06:18 | XMS_ITS | Encounter Summary ---
Author Organization [facility] Address [address] [place] [address] Care Team Providers Care Debarker Operator Name Role Phone Jann Monaco MD Primary Care Provider [phone] Encounter Details Date Type Department Care Team (Late st Contact Info) Description 09/10/2023 [employer] [facility] [address] [place] [phone] [facility] Provider Schedule Appointment - Annual Physical Social [...] documented as of this encounter Care Teams Debarker Operator Relationship Specialty Start Date End Date Jann Monaco MD [address] [facility] [address] [place] [address] PCP - General FAMILY PRACTICE 04/13/20 documented as of this encounter
--- OUTSIDE RECORDS SUMMARY | 2025-04-30 06:18 | XMS_ITS | Clinical Summary ---
Author Organization [facility] [address] Address [address] [place] [phone] Care Team Providers Care Opener Name Role Phone Jann Monaco MD Primary [...] Comments Blood Pressure 140/90 07/23/2024 4:32 PM OPERATIONS SUPPORT PROFESSIONALS Pulse 80 07/23/2024 4:32 PM OPERATIONS SUPPORT PROFESSIONALS Temperature 36.6 C (97.9 F) 07/23/2024 4:32 PM OPERATIONS SUPPORT PROFESSIONALS Respiratory Rate 18 07/23/2024 4:32 PM OPERATIONS SUPPORT PROFESSIONALS Oxygen Saturation 98% 07/23/2024 4:32 PM [employer]PERATIONS SUPPORT PROFESSION[employer] Inhaled Oxygen Concentration - - Weight 97.5 kg (215 lb) 07/23/2024 4:32 PM [employer]PERATIONS SUPPORT [employer]ESSION[employer] Height 172.7 cm (5' 8) 04/03/2024 3:54 [...] patient's age to complete this topic Insurance [place] [address] Care Teams Opener Relationship Specialty Start Date End Date Jann Monaco MD [address] [facility] [address] [place] [address] PCP - General Family Medicine 10/26/24
[2025-04-30 06:23] LABS: Add Urine Microscopic? YES; Appearance Urine Turbid (Clear); Glucose Urine UA Negative (Negative); Leukocyte Esterase Ur 3+ LEU/UL (Negative); Nitrate Urine Negative (Negative); Non Pathogenic Casts 0-2; Specific Grav Ur 1.022 (1.001-1.035)
[2025-04-30 06:32] LABS: Alanine Aminotransferase 16 U/L (6-35); Albumin Level 4.5 g/dL (3.5-5.1); Alkaline Phosphatase 64 U/L (38-126); Anion Gap 8 mmol/L (4-12); Aspartate Amino Transferase 23 U/L (14-36); Bilirubin,Total 0.9 mg/dL (0.2-1.3); Blood Urea Nitrogen 10 mg/dL (7-17); Calcium 8.8 mg/dL (8.4-10.2); Carbon Dioxide 22 mmol/L (22-30); Chloride 107 mmol/L (98-107); Estimated CRCL calculation 118 ml/min; Estimated Glomerular Filt Rate > 60; Glucose 105 mg/dL (65-110); Lipase 79 U/L (23-300); Potassium 3.6 mmol/L (3.4-5.0); Sodium 137 mmol/L (137-145); Total Protein 7.8 g/dL (6.3-8.2)
[2025-04-30 06:48] LABS: Beta HCG Quantitative 127.00 mIU/ML
[2025-04-30] MEDS: cefTRIAXone 2 GM in SODIUM CHLORIDE 0.9% IV 100 ML 200 ML IVPB (07:42)
[2025-05-02 11:48] LABS: BEDSIDEPREGUCG Positive (Negative)
== END 2025-04-30 11:03 | disposition home or self-care (01) ==
PROVIDERS: Student in an Organized Health Care Education/Training Program; Emergency Provider Emergency Medicine; PCP Family Medicine Sports Medicine
DX: O23.41 Unspecified infection of urinary tract in pregnancy, first trimester (principal); N39.0 Urinary tract infection, site not specified; O26.891 Other specified pregnancy related conditions, first trimester; R10.9 Unspecified abdominal pain; O09.521 Supervision of elderly multigravida, first trimester; Z3A.01 Less than 8 weeks gestation of pregnancy
CPT/HCPCS: 36415; 76801; 76817; 80053; 81001; 81025; 83690; 84702; 85025; 87086; 96361; 96365; 99284; A9270; J0696; J7120

== ENCOUNTER 2025-05-18 12:48 | Outpatient (CLI) | payer BC, SELFPAY ==
--- OUTSIDE RECORDS SUMMARY | 2025-05-18 16:57 | XMS_ITS | Encounter Summary ---
Author Organization [facility] Address [address] [place] [address] Care Team Providers Care Auto Service Instructor Name Role Phone Jann Monaco MD Primary Care Provider [phone] Encounter Details Date Type Department Care Team (Late st Contact Info) Description 09/10/2023 [employer] [facility] [address] [place] [phone] [facility] Provider Schedule Appointment - Annual Physical [...] documented as of this encounter Care Teams Auto Service Instructor Relationship Specialty Start Date End Date Jann Monaco MD [address] [facility] [address] [place] [address] PCP - General FAMILY PRACTICE 04/13/20 documented as of this encounter
--- OUTSIDE RECORDS SUMMARY | 2025-05-18 16:58 | XMS_ITS | Clinical Summary ---
Author Organization [facility] [address] Address [address] [place] [phone] Care Team Providers Care Grain Scooper Name Role Phone Jann Monaco MD Primary [...] Comments Blood Pressure 140/90 07/23/2024 4:32 PM COLLEGE SCOUTING COORDINATOR Pulse 80 07/23/2024 4:32 PM COLLEGE SCOUTING COORDINATOR Temperature 36.6 C (97.9 F) 07/23/2024 4:32 PM COLLEGE SCOUTING COORDINATOR Respiratory Rate 18 07/23/2024 4:32 PM COLLEGE SCOUTING COORDINATOR Oxygen Saturation 98% 07/23/2024 4:32 PM COLLEGE SCOUTING COORDINATOR Inhaled Oxygen Concentration - - Weight 97.5 kg (215 lb) 07/23/2024 4:32 PM COLLEGE SCOUTING COORDINATOR Height 172.7 cm (5' 8) 04/03/2024 3:54 [...] patient's age to complete this topic [place] [address] [place] [address] Care Teams Grain Scooper Relationship Specialty Start Date End Date Jann Monaco MD [address] [facility] [address] [place] [address] PCP - General Family Medicine 10/26/24
--- OUTSIDE RECORDS SUMMARY | 2025-05-18 16:58 | XMS_ITS | Clinical Summary ---
Author Organization [facility] Address [address] [place] [address] Care Team Providers Care Ship Engines Operating Engineer Name Role Phone Jann Monaco MD Primary [...] 02/06/2018 Annual Physical 02/28/2022 02/28/2021 PHQ-2 (Physician [place]) 06/09/2024 COVID-19 Vaccine ( season) 2025 Influenza [...] patient's age to complete this topic Insurance [facility] Care Teams Ship Engines Operating Engineer Relationship Specialty Start Date End Date Jann Monaco MD [address] [address] PCP - General FAMILY PRACTICE 04/13/20
--- OUTSIDE RECORDS SUMMARY | 2025-05-18 16:59 | XMS_ITS | Clinical Summary ---
Author Organization [email or web address] Address [address] [place] [address] Care Team Providers Care Athletic Equipment Manager Name Role Phone Unavailable Primary Care Provider Unavailabl e Source Comments [email or web address],non-owned Affiliates and Associated Physician Practices is amultiple site organization consisting of ambulatory clinics and hospital sitesin [place], [place], [place] and [place]. This disclosure is being madepursuant to the Care Everywhere program and may not contain all information available regarding this patient. Last updated 18.[email or web address] Allergies Active Allergy Reactions Criticality Noted Date [...] of 3 - 19+ 3-dose series) 02/06/2007 PAP SMEAR 02/06/2009 HPV VACCINE (1 - 3-dose SCDM series) 02/06/2015 DEPRESSION SCREENING 06/09/2024 COVID-19 VACCINE (2 - [...] patient's age to complete this topic Insurance [facility] SELF PAY NO INSURANCE Member Subscriber Plan / Payer (Ef fective for All Dates) Name:Cheyenne Solorzano Member ID:Not on file Relation to Subscriber:Not on file Name:CHEYENNE SOLORZANO Subscriber ID:Not on file Address: [address] [place] [phone] Payer ID:Not on file Group ID:Not on file Type:Self Pay Address: [place], [place]
--- OUTSIDE RECORDS SUMMARY | 2025-05-18 16:59 | XMS_ITS | Clinical Summary ---
Author Organization [place] [employer] [facility] Address [address] [place] [address] Care Team Providers Care Kettle Cook Name Role Phone Unavailable Primary Care Provider [...] food. 30 Capsule 2 06/16/2023 10:07 AM STARS SPECIALIST 3 Active ibuprofen (MOTRIN) 600 mg tablet Take One Tablet By Mouth Every 6 Hours As Needed for Cramping 30 Tablet 06/21/2023 10:54 AM STARS SPECIALIST 4 Active norethindrone, Contraceptive, 0.35 mg Tablet Take 1 tablet (0.35 mg) by mouth daily. Start day 1 of menstrual cycle. 84 Tablet 3 4 Active methylPREDNISolon e (MEDROL DOSPACK) 4 mg Tablets, Dose Pack Take tablets as directed on package. 21 Tablet 07/23/2024 5:00 PM STARS SPECIALIST 5 Active nitrofurantoin (MACROBID) 100 mg capsule Take 1 Capsule (100 mg) by mouth every 12 hours for 5 days. MUST TAKE WITH FOOD. 10 Capsule 5 04/30/20 25 Encounters Date Type Department Care Team Description [...] 19+ 3-dose series) 01/09 HPV/Cotest (21-29) 02/06/2009 CERVICAL CANCER SCREENING 02/06/2018 HPV/Cotest (30-65) 02/06/2018 PAP SMEAR 02/06/2018 INFLUENZA VACCINE (#1) 2025 HPV VACCINES (No Doses Required) Completed Insurance RX [employer] Commercial RX [employer] (INTERNAL) [facility]
== END 2025-05-18 12:49 | disposition home or self-care (01) ==
PROVIDERS: PCP Family Medicine Sports Medicine; Visit Provider Obstetrics & Gynecology
DX: O20.9 Hemorrhage in early pregnancy, unspecified (principal); Z3A.00 Weeks of gestation of pregnancy not specified
CPT/HCPCS: 36415; 84702

== ENCOUNTER 2025-05-19 13:35 | Emergency (ER) | payer BC, SELFPAY ==
--- NOTE | ~2025-05-19 | US_ITS ---
EXAM/PROCEDURE: US OB <=14 wk fetus w TV HISTORY: 7 weeks, bleeding COMPARISON: April 30, 2025 TECHNIQUE: Directed exam for evaluating viability and dates Note: EGA by dates 6 weeks 6 days. FINDINGS: No intrauterine gestation is identified on today's exam. The uterus measures 8.8 x 4.7 x 5.0 cm. Right ovary: 3.1 x 1.5 x 2.2 cm Left ovary: 2.5 x 2.0 x 1.4 cm Endometrial stripe: 1.25 cm with echogenic foci along the posterior margin of the uterine cavity. No free fluid is seen. IMPRESSION: No intrauterine identified. Echogenic foci in the posterior uterine cavity possibly representing products of conception. Correlate with follow-up quantitative hCG levels and repeat ultrasound in 7-10 days or sooner if clinically appropriate to confirm presence or absence of intrauterine gestation. Reviewed, dictated and finalized at location A. ATER IMPRESSION: No intrauterine identified. 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 Correlate with follow-up quantitative hCG levels and repeat ultrasound in 7-10 days or sooner if clinically appropriate to confirm presence or absence of intrauterine gesta tion.
[2025-05-19 13:44] VITALS: BP 156/94; PULSE 86; RESP 16; TEMP 36.7; O2SAT 100
[2025-05-19 14:04] LABS: Hematocrit 41.9 % (37.0-47.0); Hemoglobin 14.0 g/dL (12.0-15.0); Immature Granulocyte Percent A 0.3 % (0-0.5); Lymphocytes Absolute Auto 1.65 K/mm3 (0.9-3.2); Mean Corpuscular HGB Conc 33.4 g/dl (32-36); Mean Corpuscular Hemoglobin 29.0 pg (26-34); Mean Corpuscular Volume 86.9 fl (80-100); Nucleated Red Blood Cells Absolute Auto 0.000 K/mm3 (0.0-0.012); Nucleated Red Blood Cells Perc 0.0 % (0.0-0.2); Platelet Count Result 266 k/mm3 (150-375); Red Blood Count 4.82 M/mm3 (4.2-5.4); White Blood Count 11.5 K/mm3 (4.5-10.0)
[2025-05-19 14:16] LABS: INR 1.1; Partial Thromboplastin Time 27.6 Seconds (22.3-36.8); Prothrombin Time 13.8 Seconds (11.1-14.7)
[2025-05-19 14:18] LABS: Alanine Aminotransferase 21 U/L (6-35); Albumin Level 4.8 g/dL (3.5-5.1); Alkaline Phosphatase 59 U/L (38-126); Anion Gap 6 mmol/L (4-12); Aspartate Amino Transferase 25 U/L (14-36); Bilirubin,Total 1.1 mg/dL (0.2-1.3); Blood Urea Nitrogen 8 mg/dL (7-17); Calcium 9.7 mg/dL (8.4-10.2); Carbon Dioxide 25 mmol/L (22-30); Chloride 106 mmol/L (98-107); Estimated CRCL calculation 123 ml/min; Estimated Glomerular Filt Rate > 60; Glucose 107 mg/dL (65-110); Sodium 137 mmol/L (137-145); Total Protein 8.1 g/dL (6.3-8.2)
--- NOTE | 2025-05-19 14:37 | ED.PREGNANCY ---
HPI - General Chief complaint: UNIVERSITY REGISTRAR Stated complaint: 6wks preg, heavy bleeding, abdominal pain Time Seen by Provider: 05/19/25 13:53 Source: patient Mode of arrival: ambulatory Limitations: no limitations History of Present Illness HPI Narrative: Patient is a 35 y/o female who presents to the ED with c/o vaginal bleeding. Patient is in approximately 7 weeks gestation. Reports she had some vaginal spotting yesterday. Contacted her OBGYN, Dr. Pineda, and had blood work performed yesterday. Was scheduled for an ultrasound on Friday, but patient states bleeding became heavier, more bright red, and with clots today. She also reports cramping throughout her lower abdomen. Denies dizziness, lightheadedness, fevers. Related Data Home Medications ?Medication ?Instructions ?Recorded ?Confirmed ?Last Taken ?Type vitamins-iron fumarate 65 1 tablet PO DAILY 11/26/22 11/08/24 06/18/23 08:00 History mg iron-folic acid 1 mg tablet Allergies Allergy/AdvReac Type Severity Reaction Status Date / Time amoxicillin Allergy Intermediate Rash Verified 05/19/25 13:36 Review of Systems Review of Systems: All systems reviewed & are unremarkable except as noted in HPI. All systems reviewed & are unremarkable except as noted in HPI and below PMFSH Surgical History Surgical History H/O sinus surgery 1996 Family History Family History Father Hypertension Grandparent Cerebrovascular accident maternal grandfather Other Cerebrovascular accident maternal aunt Social History Social History Smoking status: Never smoker Second hand tobacco smoke exposure: No Alcohol intake: never Substance use: never Substance use type: does not use Lack of Transportation: No Lack of Food: Never True Current Housing: I Have Housing Concerned About Future Housing: No Difficulty Paying Gas/Electric Bills: No Difficulty Paying for Meds: No Currently Unemployed: No Education: Bachelor's Degree Difficulty w/ Childcare or Family Care: No Living arrangements: with family Additional living arrangements comments: spouse Occupation/Education: 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 HEAD: Normocephalic, atraumatic. RESPIRATORY: Airway patent, respirations nonlabored. Clear to auscultation bilaterally, no rales, rhonchi, wheezing. CARDIOVASCULAR: Regular rate and rhythm without murmurs, rubs, or gallops. ABDOMINAL: Soft, mild diffuse lower abdominal tenderness, nondistended. Normoactive BS. MUSCULOSKELETAL: Moves all extremities. No gross deformities. SKIN: Warm, dry, normal color. NEURO: A&O X3. Speech clear. Cranial nerves II-XII grossly intact. Steady gait. No ataxic movements. PSYCHIATRIC: Appropriate mood and affect. Normal interaction. Discharge Plan Discharge Clinical Impression: Spontaneous Patient Disposition: Home Condition: Stable Instructions: Antibiotic Form, Miscarriage (ED) Additional Instructions: Follow-up closely with Dr. Pineda for further evaluation. Call office tomorrow to make sooner follow-up appointment. Continue to monitor bleeding. Return to the ED if you experience worsening or severe bleeding, severe pain, feeling dizzy or lightheaded, passing out, unable to keep down food or drink, fevers, or any other symptoms of concern. Patient Language: Swedish Prescriptions: No Action vit-iron fum-folic ac 65 mg iron- 1 mg tablet 1 tablet PO DAILY cephalexin 500 mg capsule 500 mg PO Q8H 7 Days Qty: 21 0RF Follow-up/Referrals: Kory Pineda MD [Physician, AUTOMATIC WASHER MECHANIC] Jacinda,Jann Wolfe MD [Primary Care Provider, Unknown] Time of Disposition: 16:16 Course Vital Signs Vital signs: Vital Signs Temperature 98.1 F 05/19/25 13:44 Pulse Rate 86 05/19/25 13:44 Respiratory Rate 16 05/19/25 13:44 Blood Pressure 156/94 H 05/19/25 13:44 Pulse Oximetry 100 05/19/25 13:44 Temperature 98.1 F 05/19/25 13:44 Pulse Rate 74 05/19/25 15:12 Respiratory Rate 20 05/19/25 15:12 Blood Pressure 108/52 L 05/19/25 15:12 Pulse Oximetry 100 12/11/25 15:12 [facility] Narrative Medical decision making narrative: Patient presented to ED with vaginal bleeding, currently approximately 7 weeks gestation, , lower abdominal cramping. Vital signs stable upon arrival. Patient in no acute jesus manuel distress. She was slightly hypertensive upon initial arrival, however was anxious and nervous. This did normalize without intervention. H&H is stable Beta hcg today downtrending from yesterday, 7587 yesterday to 7064 today. UA without evidence of infection. Blood type A positive, no indication for RhoGAM. Ob ultrasound without evidence of any intrauterine gestation. Discussed lab and imaging findings, picture overall unfortunately consistent with spontaneous miscarriage. Discussed this with patient and family. They voiced understanding. I did perform pelvic exam which did not show any evidence of hemorrhage or pooling of fluid, os did appear slightly open. No significant clot seen in vaginal vault. Discussed case with Dr. Alcantara obgyn workers' compensation magistrate for Dr. Pineda, advised to monitor bleeding, call office tomorrow to make f/u appointment. Patient in agreement this plan. Given strict return precautions. Discharged in stable condition. Differential Diagnosis Differential Diagnosis: Spontaneous , threatened miscarriage, vaginal bleeding early , subchorionic hematoma, implantation bleed, UTI Lab Data [facility] Lab Attestation statement: I personally reviewed the patient's lab results. 05/19/25 13:56 05/19/25 13:56 Labs: Lab Results 05/19/25 05/19/25 Range/Units 13:56 14:23 WBC 11.5 H (4.5-10.0) K/mm3 RBC 4.82 (4.2-5.4) M/mm3 Hgb 14.0 (12.0-15.0) g/dL Hct 41.9 (37.0-47.0) % MCV 86.9 (80-100) fl MCH 29.0 (26-34) pg MCHC 33.4 (32-36) g/dl RDW 13.0 (11.5-14.5) % Plt Count 266 (150-375) k/mm3 MPV 9.4 (7.4-10.4) fl Immature Gran % (Auto) 0.3 (0-0.5) % Neut % (Auto) 75.9 H (45.5-73.1) % Lymph % (Auto) 14.3 L (18.3-44.2) % Finney % (Auto) 7.0 (2.6-8.5) % Eos % (Auto) 2.2 (0-4.4) % Baso % (Auto) 0.3 (0.2-1.2) % Lymph # (Auto) 1.65 (0.9-3.2) K/mm3 Finney # (Auto) 0.8 H (0.1-0.6) K/mm3 Eos # (Auto) 0.3 (0-0.3) K/mm3 Baso # (Auto) 0.0 (0.0-0.1) K/mm3 Abs Immat Gran (auto) 0.03 (0.00-0.031) K/mm3 Absolute Neuts (auto) 8.8 H (1.3-6.7) K/mm3 Absolute Nucleated RBC 0.000 (0.0-0.012) K/mm3 Nucleated RBC % 0.0 (0.0-0.2) % PT 13.8 (11.1-14.7) Seconds INR 1.1 APTT 27.6 (22.3-36.8) Seconds Sodium 137 (137-145) mmol/L Potassium 3.6 (3.4-5.0) mmol/L Chloride 106 (98-107) mmol/L Carbon Dioxide 25 (22-30) mmol/L Anion Gap 6 (4-12) mmol/L BUN 8 (7-17) mg/dL Creatinine 0.68 L (0.7-1.0) mg/dL Estim Creat Clear Calc 123 ml/min Estimated GFR > 60 (59 - ) Glucose 107 (65-110) mg/dL Calcium 9.7 (8.4-10.2) mg/dL Total Bilirubin 1.1 (0.2-1.3) mg/dL AST 25 (14-36) U/L ALT 21 (6-35) U/L Alkaline Phosphatase 59 (38-126) U/L Total Protein 8.1 (6.3-8.2) g/dL Albumin 4.8 (3.5-5.1) g/dL Beta HCG, Quant 7064.90 mIU/ML Urine Color Yellow (Yellow) Urine Appearance Clear (Clear) Urine pH 7.5 (5.0-9.0) Ur Specific [place] 1.002 (1.001-1.035) Urine Protein Negative (Negative) mg/dL Urine Glucose (UA) Negative (Negative) mg/dL Urine Ketones Negative (Negative) mg/dL Ur Blood (Man) 3+ H (Negative) Urine Nitrate Negative (Negative) Urine Bilirubin Negative (Negative) Urine Urobilinogen 0.2 (<2.0) mg/dL Add Ur Microanalysis Reviewed Leukocyte Esterase Rfl 2+ H (Negative) MELLISSA/UL Urine RBC 21-50 H (0-2) /hpf Urine WBC 0-5 (0-3) /hpf Ur Squamous Epith Cells None seen (Few) /hpf Urine Bacteria None seen /hpf Urine Casts 0-2 Blood Type A Positive Antibody Screen Negative Screen TNP Baby's Blood Type TNP Baby's DHRUV TNP Doses of RhIg Required 0 Imaging Data Attestation: I personally reviewed and interpreted this imaging study as follows: Radiologist's impression: ITS Impressions Obstetrics Ultrasound 05/19/25 15:06 IMPRESSION: No intrauterine identified. Echogenic foci in the posterior uterine cavity possibly representing products of conception. Correlate with follow-up quantitative hCG levels and repeat ultrasound in 7-10 days or sooner if clinically appropriate to confirm presence or absence of intrauterine gestation.
[2025-05-19 14:38] LABS: Add Urine Microscopic? YES; Appearance Urine Clear (Clear); Glucose Urine UA Negative (Negative); Leukocyte Esterase Ur 2+ LEU/UL (Negative); Need Manual Microscopic Reviewed; Nitrate Urine Negative (Negative); Non Pathogenic Casts 0-2; Specific Grav Ur 1.002 (1.001-1.035)
[2025-05-19 14:48] LABS: Potassium 3.6 mmol/L (3.4-5.0)
[2025-05-19 15:12] VITALS: BP 108/52; PULSE 74; RESP 20; O2SAT 100
--- NOTE | 2025-05-19 15:56 | PC.NURSE ---
pelvic exam accomplished with NETTA De Anda. patient tolerated well.
--- OUTSIDE RECORDS SUMMARY | 2025-05-19 19:25 | XMS_ITS | Clinical Summary ---
Author Organization [facility] Address [address] [place] [address] Care Team Providers Care Fruit Ii Farmworker Name Role Phone Jann Monaco MD Primary [...] 02/06/2018 Annual Physical 02/28/2022 02/28/2021 PHQ-2 (Physician [place]) 06/09/2024 COVID-19 Vaccine ( season) 2025 Influenza [...] patient's age to complete this topic Insurance [facility] Care Teams Fruit Ii Farmworker Relationship Specialty Start Date End Date Jann Monaco MD [address] [address] PCP - General FAMILY PRACTICE 04/13/20
--- OUTSIDE RECORDS SUMMARY | 2025-05-19 19:25 | XMS_ITS | Clinical Summary ---
Author Organization [facility] [address] Address [address] [place] [id number] Care Team Providers Care Sexual Health Physician Name Role Phone Jnan Monaco MD Primary Care Provider + Allergies [...] Comments Blood Pressure 140/90 07/23/2024 4:32 PM BANQUET MANAGER Pulse 80 07/23/2024 4:32 PM BANQUET MANAGER Temperature 36.6 C (97.9 F) 07/23/2024 4:32 PM BANQUET MANAGER Respiratory Rate 18 07/23/2024 4:32 PM BANQUET MANAGER Oxygen Saturation 98% 07/23/2024 4:32 PM BANQUET MANAGER Inhaled Oxygen Concentration - - Weight 97.5 kg (215 lb) 07/23/2024 4:32 PM BANQUET MANAGER Height 172.7 cm (5' 8) 04/03/2024 3:54 [...] patient's age to complete this topic Insurance [place] [place] [address] Care Teams Sexual Health Physician Relationship Specialty Start Date End Date Jann Monaco MD [address] [facility] [address] [place] [address] PCP - General Family Medicine 10/26/24
--- OUTSIDE RECORDS SUMMARY | 2025-05-19 19:25 | XMS_ITS | Clinical Summary ---
Author Organization [facility] [employer] Address [address] [facility] [place] [address] Care Team Providers Care Client Success Specialist Name Role Phone Unavailable Primary Care Provider Unavailabl e Source Comments [facility] [employer],non-owned Affiliates and Associated Physician Practices is amultiple site organization consisting of ambulatory clinics and hospital sitesin [place], [place], [place] and [place]. This disclosure is being madepursuant to the Care Everywhere program and may not contain all information available regarding this patient. Last updated 18.[facility] [employer] Allergies Active Allergy Reactions Criticality Noted Date [...] patient's age to complete this topic Insurance [facility] SELF PAY NO INSURANCE Member Subscriber Plan / Payer (Ef fective for All Dates) Name:Cheyenne Solorzano Member ID:Not on file Relation to Subscriber:Not on file Name:CHEYENNE SOLORZANO Subscriber ID:Not on file Address: [address] [place] [id number] Payer ID:Not on file Group ID:Not on file Type:Self Pay Address: [place], [place]
--- OUTSIDE RECORDS SUMMARY | 2025-05-19 19:25 | XMS_ITS | Encounter Summary ---
Author Organization [facility] Address [address] [place] [address] Care Team Providers Care Dermatology Specialist Name Role Phone Jann Monaco MD Primary Care Provider [phone] Encounter Details Date Type Department Care Team (Late st Contact Info) Description 09/10/2023 Liquipel [facility] [address] [place] [phone] [facility] Provider Schedule Appointment - Annual Physical [...] documented as of this encounter Care Teams Dermatology Specialist Relationship Specialty Start Date End Date Jann Monaco MD [address] [facility] [address] [place] [address] PCP - General FAMILY PRACTICE 04/13/20 documented as of this encounter
--- OUTSIDE RECORDS SUMMARY | 2025-05-19 19:25 | XMS_ITS | Encounter Summary ---
Author Organization [facility] Address [address] [place] [address] Care Team Providers Care Principal Security Architect Name Role Phone Jann Monaco MD Primary Care Provider [phone] Encounter Details Date Type Department Care Team (Late st Contact Info) Description 07/05/2002 Abstract [facility] Conversion Md, Generic ConversionMD Social History Tobacco [...] Rule Out 04/13/2020 04/13/2020 04/16/2020 6:40 AM [employer]P D[employer] AD SALES documented as of this encounter Care Teams Principal Security Architect Relationship Specialty Start Date End Date Jann Monaco MD [address] [address] PCP - General FAMILY PRACTICE 04/13/20 documented as of this encounter
--- OUTSIDE RECORDS SUMMARY | 2025-05-19 19:25 | XMS_ITS | Clinical Summary ---
Author Organization [facility] [employer] Address [address] [place] [address] Care Team Providers Care Director Of Marketing And Promotions Name Role Phone Unavailable Primary Care Provider [...] food. 30 Capsule 2 06/16/2023 10:07 AM SYSTEM PLANNING ENGINEER 3 Active ibuprofen (MOTRIN) 600 mg tablet Take One Tablet By Mouth Every 6 Hours As Needed for Cramping 30 Tablet 06/21/2023 10:54 AM SYSTEM PLANNING ENGINEER 4 Active norethindrone, Contraceptive, 0.35 mg Tablet Take 1 tablet (0.35 mg) by mouth daily. Start day 1 of menstrual cycle. 84 Tablet 3 4 Active methylPREDNISolon e (MEDROL DOSPACK) 4 mg Tablets, Dose Pack Take tablets as directed on package. 21 Tablet 07/23/2024 5:00 PM SYSTEM PLANNING ENGINEER 5 Active nitrofurantoin (MACROBID) 100 mg capsule [...]
== END 2025-05-19 16:30 | disposition home or self-care (01) ==
LOC: ANHED 16:10
PROVIDERS: Emergency Medicine; Emergency Provider Physician Assistant; PCP Family Medicine Sports Medicine
DX: O03.9 Complete or unspecified spontaneous abortion without complication (principal)
CPT/HCPCS: 36415; 76801; 76817; 80053; 81001; 84702; 85025; 85461; 85610; 85730; 86850; 86900; 86901; 87086; 99284

== ENCOUNTER 2025-05-30 15:06 | Outpatient (CLI) | payer BC, SELFPAY ==
--- NOTE | ~2025-05-30 | US_ITS ---
EXAMINATION: US pelvic complete w TV INDICATION: Missed Comparison:Ultrasound dated 05/19/2025 TECHNIQUE: Multiple transabdominal and endovaginal sonographic images of the pelvis performed. FINDINGS: The uterus measures 6.2 x 3.9 x 4.9 cm. The endometrial complex measures 8 mm. The right ovary measures 2.7 x 1.3 x 2 cm and the left ovary measures 3.4 x 1.9 x 1.8 cm. There are small follicles in each ovary. Normal doppler signal in both ovaries. There is no free fluid in the pelvis. There are no abnormal masses seen on either side. IMPRESSION: 1. Unremarkable pelvic ultrasound. Reviewed, dictated and finalized at location O. 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
== END 2025-05-30 15:07 | disposition home or self-care (01) ==
LOC: MICIMG 15:06
PROVIDERS: PCP Obstetrics & Gynecology; Visit Provider Obstetrics & Gynecology
DX: O02.1 Missed abortion (principal)
CPT/HCPCS: 76830; 76856